=== PATIENT | female | born 1930 | race Caucasian/White ===

== ENCOUNTER → 2016-11-18 | Outpatient (CLI) | payer BC, OTHER ==
[~2016-11-18] MED LIST: ALPPOPS5 OP; AMOX500C3 PO; BIMA0.01 OPB; BRIN1SUS OPB; CHOL100010 PO; DILT120T3 PO; ENOX40IN SQ; HYDR-5688 PO; LEVO75TA36 PO; LSN/10125 PO; METO25TA3 PO; MULT-190 PO; MULTTAB58 PO; SIMV20TA2 PO; WARF5TAB90 PO
== END | disposition home or self-care (01) ==
LOC: C.RDSM 15:10
PROVIDERS: ATTEND Physical Medicine & Rehabilitation Sports Medicine
DX: Z96.652 Presence of left artificial knee joint (principal)

== ENCOUNTER → 2017-06-04 | Outpatient (CLI) | payer BC | END | disposition home or self-care (01) | LOC: C.RDSM 13:47 | PROVIDERS: ATTEND Physical Medicine & Rehabilitation Sports Medicine | DX: M25.551 Pain in right hip (principal) ==

== ENCOUNTER → 2017-08-01 | Outpatient (CLI) | payer BC ==
--- NOTE | 2017-08-01 13:37 | MAMMOGRAPHY REPORT ---
BILATERAL DIGITAL SCREENING MAMMOGRAM WITH CAD: 08/01/2017 CLINICAL HISTORY: Routine screening. Patient has no complaints. TECHNIQUE: Current study was also evaluated with a Computer Aided Detection (CAD) system. Bilateral CC and MLO views were obtained. COMPARISON: Comparison is made to exams dated: 07/31/2016 mammogram, 07/28/2015 mammogram, 07/27/2014 m ammogram, 07/26/2013 mammogram, 07/20/2012 mammogram, and 07/15/2011 mammogram - [facility]. BREAST COMPOSITION: The tissue of both breasts is heterogeneously dense, which may obscure small mas ses. FINDINGS: No suspicious masses, calcifications, or areas of architectural distortion are noted in ei ther breast. There has been no significant interval change compared to prior exams. IMPRESSION: ACR BI-RADS CATEGORY 1: NEGATIVE There is no mammographic evidence of malignancy. A 1 year screening mammogram is recommended. The pa tient will receive written notification of the results. Approximately 10% of breast cancers are not detected with mammography. A negative mammographic report should not delay biopsy if a clinically suggestive mass is present. Tisha Edouard M.D. /:08/01/2017 12:35:43 Senior [employer] Developer: Sheryl Lucas, M, [facility] letter sent: Normal 1/2 BI-RADS Code: ACR BI-RADS Category 1: Negative
== END | disposition home or self-care (01) ==
LOC: C.MAMM 10:18
PROVIDERS: ATTEND Family Medicine
DX: Z12.31 Encounter for screening mammogram for malignant neoplasm of breast (principal)

== ENCOUNTER → 2017-11-28 | Day surgery (SDC) | payer BC ==
[2017-11-13 10:54] VITALS: BMI 26.0
[~2017-11-28] VITALS: Ht 170.2 cm; Wt 76.8 kg
[~2017-11-28] MED LIST changes: +ACET-1256 PO; -ALPPOPS5 OP; +ALPPOPS5 OPB; +ATOR-54 PO; +BRIM0.2S OPB; +CAND16TA PO; -CHOL100010 PO; +CHOL200010 PO; -DILT120T3 PO; -ENOX40IN SQ; +ESMOLOL HCL 10 MG/ML 10 ML VIAL ONE; +FSMD/70 PO; -HYDR-5688 PO; -LEVO75TA36 PO; +LEVO75TA5 PO; +LIDOCAINE HCL 2% 2 ML VIAL (20MG/ML) ONE; -LSN/10125 PO; +METOPROLOL TARTRATE 1 MG/ML VIAL ONE; -MULT-190 PO; +MULTCAP36 PO; +PROPOFOL IV EMULSION 10 MG/ML 20 ML VIAL IV ONE; +PSYL48.59 PO; +RIVA1TAB4 PO; -SIMV20TA2 PO; +SODIUM CHLORIDE 0.9% 500ML 500 ML IV ONE; -WARF5TAB90 PO
[2017-11-28 12:42] VITALS: Ht 170.2 cm; Wt 76.8 kg
--- NOTE | 2017-11-28 13:20 | Endo History and Physical ---
History & Physical Date of Service: Nov 28, 2017. Chief Complaint: rectal bleeding Referring Physician: dr. reyes History of Present Illness rectal bleeding Past Medical History Arthritis, Asthma, Anxiety, Reflux, Thyroid Disease, Depression Past Surgical History Hx Cardiac Surgery: No Hx Internal Defibrillator: No Hx Pacemaker: No Hx Abdominal Surgery: Yes (FULL HYSTER) Hx of Implantable Prosthesis: No Hx Post-Op Nausea and Vomiting: No Hx Cancer Surgery: No Hx Thoracic Surgery: No Hx Orthopedic: Yes (LT/RT TKA) Hx Urinary Tract Surgery: Yes (BLADDER TACK) Family History None Social History Smoking Status: Former Smoker Hx Substance Use: No Hx Alcohol Use: No Allergies Coded Allergies: Oxycodone (Verified Adverse Reaction, Mild, AMNESIA, 11/13/17) Risedronate (Verified Adverse Reaction, Mild, N/V, 11/13/17) Alendronate (Verified Adverse Reaction, Unknown, N/V, 11/13/17) Ibandronic Acid (Verified Adverse Reaction, Unknown, leg pain;and diarrhea , 11/13/17) Methimazole (Verified Adverse Reaction, Unknown, N/V, 11/13/17) Current Medications Reported Home Medications Medications Dose Route/Sig Max Daily Dose Days Date Category Tylenol (Acetaminophen) 500 Mg Tab 1-2 Tabs PO Q6H PRN 11/13/17 Reported Fosamax+D 70MG/2800 Iu (Alendronate Sodium/Vitamin D3) 70 Mg Tab 1 Tablet PO WK 11/13/17 Reported Metamucil (Psyllium) 48.57 % Pow 1 Tsp PO BID 11/13/17 Reported Lipitor (Atorvastatin) 20 Mg Tab 20 Mg PO Q2D BEDTIME 11/13/17 Reported Xarelto (Rivaroxaban) 20 Mg Tab 20 Mg PO QPM 11/13/17 Reported Combigan (Brimonidine Tartrate-Timolol M) 1 Earlene Earlene 1 Drop OPB BID 11/13/17 Reported Preservision/Lutein (Multiple Vitamins W/ Minerals) 1 Cap Cap 1 Cap PO BID 11/13/17 Reported Vitamin D (Cholecalciferol) 2,000 Unit Cap 1 Cap PO QAM 11/13/17 Reported Atacand Hct 16MG/12.5MG (Candesartan Cilexetil-Hydrochl) 1 Tab Tab 1 Tab PO QAM 11/13/17 Reported Levothyroxine Sodium 75 Mcg Tab 1 Tab PO QAM 11/13/17 Reported Toprol-Xl (Metoprolol Succinate) 25 Mg Tabcr 2 Tabs PO HS 11/20/15 Reported Alphagan P (Brimonidine Tartrate) 75 Drops/5 Ml Soln 1 Drops OPB TID 11/20/15 Reported Amoxil (Amoxicillin) 500 Mg Cap 2,000 Mg PO UD PRN 06/09/14 Reported Azopt Oph (Brinzolamide) 1 % Izabella 1 Drop OPB TID 10/27/13 Reported Lumigan (Bimatoprost) 0.01 % Earlene 1 Drop OPB HS 10/27/13 Reported Multivitamin (Multiple Vitamin) 1 Tab Tab 1 Tab PO LUNCH 09/16/12 Reported Vital Signs Weight (Kilograms): 76.82 Height (Feet): 5 Height (Inches): 7 Date Time Temp Pulse Resp B/P (MAP) Pulse Ox O2 Delivery O2 Flow Rate FiO2 11/28/17 13:07 36.8 136 20 141/98 (112) 94 Room Air Physical Exam General Appearance: WD/WN, no apparent distress Respiratory/Chest: Auscultation: breath sounds normal Cardiovascular: Heart Auscultation: RRR Abdomen: Bowel Sounds: normal Inspection & Palpation: soft, non-distended, no tenderness, guarding & rebound Assessment and Plan colonoscopy with possible bx/polypectomy
--- NOTE | 2017-11-28 14:22 | GI REPORT ---
Procedure Date: 11/28/2017 1:37 PM Procedure: Colonoscopy Indications: Hematochezia Medicines: Propofol per Anesthesia Complications: No immediate complications. Estimated blood loss: Minimal. Estimated Blood Loss: Estimated blood loss was minimal. Procedure: Pre-Anesthesia Assessment: - Prior to the procedure, a History and Physical was performed, and patient medications and allergies were reviewed. The patient's tolerance of previous anesthesia was also reviewed. The risks and benefits of the procedure and the sedation options and risks were discussed with the patient. All questions were answered, and informed consent was obtained. Prior Anticoagulants: The patient has taken no previous anticoagulant or antiplatelet agents. ASA Grade Assessment: III - A patient with severe systemic disease. After reviewing the risks and benefits, the patient was deemed in satisfactory condition to undergo the procedure. After I obtained informed consent, the scope was passed under direct vision. Throughout the procedure, the patient's blood pressure, pulse, and oxygen saturations were monitored continuously. The scope was introduced through the anus and advanced to the terminal ileum, with identification of the appendiceal orifice and IC valve. The colonoscopy was performed without difficulty. The patient tolerated the procedure well. The quality of the bowel preparation was good. Findings: The perianal and digital rectal examinations were normal. Pertinent negatives include normal sphincter tone, no palpable rectal lesions and no anal lesion or abnormality was detected. A 3 mm polyp was found in the transverse colon. The polyp was sessile. The polyp was removed with a cold biopsy forceps. Resection and retrieval were complete. Estimated blood loss was minimal. Verification of patient identification for the specimen was done by the physician and medical records technician using the patient's name and medical record number. A few small-mouthed diverticula were found in the sigmoid colon. The exam was otherwise without abnormality. The terminal ileum appeared normal. Non-bleeding internal hemorrhoids were found during retroflexion. The hemorrhoids were moderate and medium-sized. Impression: - One 3 mm polyp in the transverse colon, removed with a cold biopsy forceps. Resected and retrieved. - Diverticulosis in the sigmoid colon. - The examination was otherwise normal. - The examined portion of the ileum was normal. - Non-bleeding internal hemorrhoids. Recommendation: - Discharge patient to home (ambulatory). - Resume regular diet. - Await pathology results. - Continue present medications. - Return to referring physician as previously scheduled. MD Dannie Wallace MD 11/28/2017 2:21:50 PM This report has been signed electronically. Note Initiated On: 11/28/2017 1:37 PM I attest to the content of the Intraoperative Record and orders documented therein, exceptions below
--- NOTE | 2017-11-28 14:25 | Discharge Instructions ---
Endoscopy Patient Instructions Date / Procedure(s) Performed Nov 28, 2017. Colonoscopy Allergy Information Coded Allergies: Oxycodone (Verified Adverse Reaction, Mild, AMNESIA, 11/13/17) Risedronate (Verified Adverse Reaction, Mild, N/V, 11/13/17) Alendronate (Verified Adverse Reaction, Unknown, N/V, 11/13/17) Ibandronic Acid (Verified Adverse Reaction, Unknown, leg pain;and diarrhea , 11/13/17) Methimazole (Verified Adverse Reaction, Unknown, N/V, 11/13/17) Discharge Date / Findings Nov 28, 2017. hemorrhoids polyp-removed with bx Medication Instructions Stopped Medication(s): xarelto Restart Stopped Medication(s): Reported Home Medications Medications Dose Route/Sig Max Daily Dose Days Date Category Tylenol (Acetaminophen) 500 Mg Tab 1-2 Tabs PO Q6H PRN 11/13/17 Reported Fosamax+D 70MG/2800 Iu (Alendronate Sodium/Vitamin D3) 70 Mg Tab 1 Tablet PO WK 11/13/17 Reported Metamucil (Psyllium) 48.57 % Pow 1 Tsp PO BID 11/13/17 Reported Lipitor (Atorvastatin) 20 Mg Tab 20 Mg PO Q2D BEDTIME 11/13/17 Reported Xarelto (Rivaroxaban) 20 Mg Tab 20 Mg PO QPM 11/13/17 Reported Combigan (Brimonidine Tartrate-Timolol M) 1 Earlene Earlene 1 Drop OPB BID 11/13/17 Reported Preservision/Lutein (Multiple Vitamins W/ Minerals) 1 Cap Cap 1 Cap PO BID 11/13/17 Reported Vitamin D (Cholecalciferol) 2,000 Unit Cap 1 Cap PO QAM 11/13/17 Reported Atacand Hct 16MG/12.5MG (Candesartan Cilexetil-Hydrochl) 1 Tab Tab 1 Tab PO QAM 11/13/17 Reported Levothyroxine Sodium 75 Mcg Tab 1 Tab PO QAM 11/13/17 Reported Toprol-Xl (Metoprolol Succinate) 25 Mg Tabcr 2 Tabs PO HS 11/20/15 Reported Alphagan P (Brimonidine Tartrate) 75 Drops/5 Ml Soln 1 Drops OPB TID 11/20/15 Reported Amoxil (Amoxicillin) 500 Mg Cap 2,000 Mg PO UD PRN 06/09/14 Reported Azopt Oph (Brinzolamide) 1 % Izabella 1 Drop OPB TID 10/27/13 Reported Lumigan (Bimatoprost) 0.01 % Earlene 1 Drop OPB HS 10/27/13 Reported Multivitamin (Multiple Vitamin) 1 Tab Tab 1 Tab PO LUNCH 09/16/12 Reported OK to resume Xeralto tomorrow evening ( Sat) Reported Home Medications Medications Dose Route/Sig Max Daily Dose Days Date Category Tylenol (Acetaminophen) 500 Mg Tab 1-2 Tabs PO Q6H PRN 11/13/17 Reported Fosamax+D 70MG/2800 Iu (Alendronate Sodium/Vitamin D3) 70 Mg Tab 1 Tablet PO WK 11/13/17 Reported Metamucil (Psyllium) 48.57 % Pow 1 Tsp PO BID 11/13/17 Reported Lipitor (Atorvastatin) 20 Mg Tab 20 Mg PO Q2D BEDTIME 11/13/17 Reported Xarelto (Rivaroxaban) 20 Mg Tab 20 Mg PO QPM 11/13/17 Reported Combigan (Brimonidine Tartrate-Timolol M) 1 Earlene Earlene 1 Drop OPB BID 11/13/17 Reported Preservision/Lutein (Multiple Vitamins W/ Minerals) 1 Cap Cap 1 Cap PO BID 11/13/17 Reported Vitamin D (Cholecalciferol) 2,000 Unit Cap 1 Cap PO QAM 11/13/17 Reported Atacand Hct 16MG/12.5MG (Candesartan Cilexetil-Hydrochl) 1 Tab Tab 1 Tab PO QAM 11/13/17 Reported Levothyroxine Sodium 75 Mcg Tab 1 Tab PO QAM 11/13/17 Reported Toprol-Xl (Metoprolol Succinate) 25 Mg Tabcr 2 Tabs PO HS 11/20/15 Reported Alphagan P (Brimonidine Tartrate) 75 Drops/5 Ml Soln 1 Drops OPB TID 11/20/15 Reported Amoxil (Amoxicillin) 500 Mg Cap 2,000 Mg PO UD PRN 06/09/14 Reported Azopt Oph (Brinzolamide) 1 % Izabella 1 Drop OPB TID 10/27/13 Reported Lumigan (Bimatoprost) 0.01 % Earlene 1 Drop OPB HS 10/27/13 Reported Multivitamin (Multiple Vitamin) 1 Tab Tab 1 Tab PO LUNCH 09/16/12 Reported OK to resume Xeralto tomorrow evening ( Sat) Provider Instructions Activity Restrictions - No exercising or heavy lifting for 24 hours. - Do not drink alcohol the day of the procedure. - Do not drive a car or operate machinery until the day after the procedure. - Do not make any important decisions or sign important papers in 24 hours after the procedure. Following Day: - Return to full activity which may include returning to work/school. Diet Start your diet with liquids and light foods (jello, soup, juice, toast). Then eat your usual diet if not nauseated. Treatment For Common After Affects For mild abdominal pain, bloating, or excessive gas: - Rest - Eat lightly - Lie on right side Follow-Up Information Follow-up with dr. reyes as scheduled Anesthesia Information What You Should Know You have had a procedure that required some medicine to reduce anxiety and discomfort. This treatment is called moderate sedation. After receiving the treatment, you may be sleepy, but you will be able to breathe on your own. The effects of the treatment may last for several hours. Follow these instructions along with Activity/Diet recommendations noted above: * Do NOT do anything where dizziness or clumsiness would be dangerous. * Rest quietly at home today, then you can be up and about tomorrow. * Have a responsible person stay with you the rest of today. * You may have had an I.V. today. If so, you may take the dressing off later today. Recommendations Call your doctor if: * Trouble breathing * Continuous vomiting for more than 24 hours * Temperature above 101 degrees * Severe abdominal pain or bloating * Pain not relieved by pain medicine ordered * There is increased drainage or redness from any incision * A large amount of rectal bleeding greater than 2-3 tablespoons. (If you had a polyp/s removed or have hemorrhoids, a small amount of blood - from the rectum is to be expected.) * You have any unanswered questions or concerns. IN THE EVENT OF A SERIOUS EMERGENCY, GO TO THE NEAREST EMERGENCY ROOM Your discharge instructions were prepared by provider Dannie Ocampo. Patient Instructions Signature Page Paulette Conner Patient (or Guardian) Signature/Date: I have read and understand the instructions given to me by my caregivers. Caregiver/RN/Doctor Signature/Date: The above-named patient and/or guardian has received patient instructions on this date. + Original Patient Signature Page (only) stays with chart. Please make copy for patient.
[2017-11-28 14:49] VITALS: BP 137/85; PULSE 101; O2SAT 97
--- NOTE | 2017-11-28 15:10 | Anesthesiology Progress Note ---
Anesthesia Post Op Note Date & Time Nov 28, 2017 at 15:10 Vital Signs Pain Intensity: 0 Vital Signs Past 12 Hours Date Time Temp Pulse Resp B/P (MAP) Pulse Ox O2 Delivery O2 Flow Rate FiO2 11/28/17 14:49 101 24 137/85 (102) 97 Room Air 11/28/17 14:34 107 24 109/78 (88) 96 Room Air 11/28/17 14:19 98 24 104/54 (71) 94 Room Air 11/28/17 13:07 36.8 136 20 141/98 (112) 94 Room Air Notes Mental Status: alert / awake / arousable, participated in evaluation Pt Amnestic to Procedure: Yes Nausea / Vomiting: adequately controlled Pain: adequately controlled Airway Patency, RR, SpO2: stable & adequate BP & HR: stable & adequate Hydration State: stable & adequate Anesthetic Complications: no major complications apparent
== END | disposition home or self-care (01) ==
LOC: C.GI 12:07
PROVIDERS: ATTEND Internal Medicine Gastroenterology
DX: K62.5 Hemorrhage of anus and rectum (principal); K57.30 Diverticulosis of large intestine without perforation or abscess without bleeding; K64.8 Other hemorrhoids; M19.90 Unspecified osteoarthritis, unspecified site; J45.909 Unspecified asthma, uncomplicated; K21.9 Gastro-esophageal reflux disease without esophagitis; F32.9 Major depressive disorder, single episode, unspecified; E07.9 Disorder of thyroid, unspecified; Z88.5 Allergy status to narcotic agent; Z90.710 Acquired absence of both cervix and uterus; Z96.653 Presence of artificial knee joint, bilateral; Z87.891 Personal history of nicotine dependence

== ENCOUNTER → 2017-12-22 | Outpatient (CLI) | payer BC ==
[~2017-12-22] MED LIST changes: -ESMOLOL HCL 10 MG/ML 10 ML VIAL ONE; -LIDOCAINE HCL 2% 2 ML VIAL (20MG/ML) ONE; -METOPROLOL TARTRATE 1 MG/ML VIAL ONE; -PROPOFOL IV EMULSION 10 MG/ML 20 ML VIAL IV ONE; -SODIUM CHLORIDE 0.9% 500ML 500 ML IV ONE
--- NOTE | 2017-12-22 10:44 | DIAGNOSTIC IMAGING REPORT ---
L HIP UNILATERAL 2 VIEWS CLINICAL HISTORY: Left hip pain. COMPARISON: Pelvis and left hip radiographs May 05, 2017. FINDINGS: Alignment of the left hip is anatomic. No fracture or suspicious lesion is present. Left hip joint space is preserved. There is mild osteophytosis. There may be chondrocalcinosis. There is no radiographic evidence for avascular necrosis. IMPRESSION: 1. No acute fracture. 2. Mild osteoarthritis of the left hip. Electronically signed by: Kole Casey M.D. 12/22/2017 10:42 AM Dictated Date/Time: 12/22/2017 10:41 AM
== END | disposition home or self-care (01) ==
LOC: C.RAD1850 10:30
PROVIDERS: ATTEND Family Medicine
DX: M25.552 Pain in left hip (principal); M16.12 Unilateral primary osteoarthritis, left hip

== ENCOUNTER → 2018-03-29 | Outpatient (CLI) | payer BC | END | disposition home or self-care (01) | LOC: C.LAB 08:14 | PROVIDERS: ATTEND Urology | DX: R31.0 Gross hematuria (principal) ==

== ENCOUNTER → 2018-04-06 | Outpatient (CLI) | payer BC | END | disposition home or self-care (01) | LOC: C.RDSM 15:15 | PROVIDERS: ATTEND Physical Medicine & Rehabilitation Sports Medicine | DX: M25.552 Pain in left hip (principal) ==

== ENCOUNTER 2019-05-17 12:38 | Inpatient (IN) ==
[2019-05-17] MEDS ORDERED: SODIUM CHLORIDE 0.9% 500 ML IV ONE (13:54)
[2019-05-17 14:09] LABS: Basophils # (auto) 0.02 K/uL (0-0.2); Basophils % (auto) 0.2 %; Eosinophils # (auto) 0.13 K/uL (0-0.5); Eosinophils % (auto) 1.6 %; Hematocrit (blood only) 45.5 % (37-47); Hemoglobin 14.5 g/dL (12.0-16.0); Immature Granulocytes # (auto) 0.02 K/uL (0.00-0.02); Immature Granulocytes % (auto) 0.2 %; Lymphocytes # (auto) 0.94 K/uL (1.2-3.4); Lymphocytes % (auto) 11.4 %; Mean Corpuscular Hemoglobin 29.8 pg (25-34); Mean Corpuscular Hgb Conc 31.9 g/dL (32-36); Mean Corpuscular Volume 93.4 fL (80-100); Mean Platelet Volume 11.6 fL (7.4-10.4); Monocytes % (auto) 10.9 %; Neutrophils # (auto) 6.27 K/uL (1.4-6.5); Neutrophils % (auto) 75.7 %; Platelet Count 188 K/uL (130-400); RDW Coefficient of Variation 16.7 % (11.5-14.5); RDW Standard Deviation 56.8 fL (36.4-46.3); Red Blood Count 4.87 M/uL (4.2-5.4); White Blood Count 8.28 K/uL (4.8-10.8)
[2019-05-17 14:11] LABS: Alanine Aminotransferase 46 U/L (12-78); Albumin Level 3.4 gm/dl (3.4-5.0); Aspartate Aminotransferase 37 U/L (15-37); BUN Creatinine Ratio 17.3 (10-20); Blood Urea Nitrogen 16 mg/dl (7-18); Calcium 9.5 mg/dl (8.5-10.1); Carbon Dioxide 26 mmol/L (21-32); Chloride 106 mmol/L (98-107); Est GFR (African American) 65.3; Est GFR (Non-African American) 56.4; Glucose 133 mg/dl (70-99); Lipase 226 U/L (73-393); Magnesium 1.9 mg/dl (1.8-2.4); Potassium 4.2 mmol/L (3.5-5.1); Sodium 140 mmol/L (136-145)
--- NOTE | 2019-05-17 14:14 | XRay Report ---
SINGLE VIEW CHEST CLINICAL HISTORY: Atypical chest pain. FINDINGS: An AP, portable, upright chest radiograph is compared to study dated 08/31/2018 and correlate d with chest CT dated 06/28/2018. The examination is degraded by portable technique and patient rotati on. The heart is enlarged and there is atherosclerotic calcification of the thoracic aorta. There is pulmonary vascular congestion. There are small pleural effusions with bibasilar consolidation. No pn eumothorax is seen. The skeletal structures are osteopenic. The bony thorax is grossly intact. IMPRESSION: 1. Cardiomegaly with evidence of congestive failure. 2. Small pleural effusions with bibasilar consolidation. This likely represents atelectasis and clini shaista correlation will be required. Electronically signed by: Ramiro Doss M.D. 05/17/2019 2:12 PM
[2019-05-17 14:22] LABS: Albumin Globulin Ratio 0.9 (0.9-2); Alkaline Phosphatase 111 U/L (45-117); Bilirubin,Total 1.5 mg/dl (0.2-1); Globulin 3.7 gm/dl (2.5-4.0); Phosphorus 3.2 mg/dl (2.5-4.9); Total Protein 7.1 gm/dl (6.4-8.2); Troponin I < 0.015 ng/ml (0-0.045)
[2019-05-17] MEDS ORDERED: DiphenhydrAMINE HCL 50 MG/ML VIAL IV STA (14:56)
--- NOTE | 2019-05-17 15:04 | Emergency Department Note ---
ED Visit Note This patient was seen in concert with Dr. Parra and we discussed and agreed upon the history, physical, assessment and plan. See attending's note for details. . Resident Activity Tracking Resident Involvement: Resident Care Provided Care Provided: Adult ED
[2019-05-17] MEDS ORDERED: OPTIRAY 320 125ml IV PRN (15:56)
--- NOTE | 2019-05-17 16:17 | CT Scan Report ---
CT angio head w con CLINICAL HISTORY: 88 years-old Female presenting with vertigo. TECHNIQUE: Multidetector CT angiography of the head was performed after the administration of intrave nous contrast. 3-D volumetric and/or maximum intensity projection (MIP) images were subsequently deb nstructed for review. IV contrast: None. One or more dose lowering techniques were used consistent wi th the principles of ALARA (as low as reasonably achievable), including automatic exposure control, m A or kV adjustment to individual patient size, and/or use of iterative reconstruction. COMPARISON: Noncontrast CT head from today and 06/24/2018. CT DOSE (mGy.cm): The estimated cumulative dose is 1563.60. FINDINGS: Outside Cutter topogram: The patient is edentulous. Anterior circulation: Atherosclerosis of the cavernous segments of the internal carotid arteries. Int racranial portions of the internal carotid arteries patent to the level of the termini. Anterior cere bral arteries patent. Middle cerebral arteries patent. Anterior communicating artery patent. Posterior circulation: Codominant vertebral arteries. Intradural portions of the vertebral arteries p atent. Posterior inferior cerebellar arteries patent. Basilar artery patent. Fenestration of the basi lar artery noted. Anterior inferior cerebellar arteries poorly visualized. Superior cerebellar arteri es patent. Posterior cerebral arteries patent. Posterior communicating arteries patent. Dural venous sinuses: Patent. Other: Allowing for the phase of contrast, brain parenchyma within normal limits. Calvarium intact. IMPRESSION: 1. No evidence of aneurysm, focal vessel occlusion, or significant stenosis of the intracranial immanuel sara. Electronically signed by: Artem Barclay M.D. 05/17/2019 4:16 PM
--- NOTE | 2019-05-17 16:17 | CT Scan Report ---
CT head/brain wo con CLINICAL HISTORY: 88 years-old Female with Vertigo. Acute vertigo with dizziness TECHNIQUE: Multiple axial CT images of the head were obtained without contrast. A dose lowering tech nique was utilized adhering to the principles of ALARA. CT DOSE: 1563.60 mGy.cm COMPARISON: CTA of the head of same day, CT head 06/24/2018 FINDINGS: Motion degraded exam. No acute intracranial hemorrhage, midline shift, intracranial mass, hydrocephal us, territorial ischemia or abnormal extra-axial collection. Age-related involutional changes. Patchy white matter hypodensities suggest chronic microvascular ischemic disease. Cerebral vascular calcifi cations are noted. Senescent calcifications of the left lentiform nucleus. Encephalomalacia of the in ferior left cerebellar hemisphere suggestive of remote infarction, new from comparison study. The calvarium is intact. Prior bilateral cataract repair. The paranasal sinuses, mastoid air cells, a nd middle ear cavities are clear. IMPRESSION: 1. No acute intracranial hemorrhage or midline shift. 2. 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 It may contain grammatical, syntax o r spelling errors. Electronically signed by: Radu Turpin M.D. 05/17/2019 4:16 PM
--- NOTE | 2019-05-17 16:27 | CT Scan Report ---
CT angio neck with con CLINICAL HISTORY: 88 years-old Female with vertigo. Acute vertigo with dizziness COMPARISON STUDY: CTA of the head of same day TECHNIQUE: Following the IV administration of 119 mL of Optiray 320, CT angiogram of the neck was per formed from the aortic arch to the skull base. Images are reviewed in the axial, sagittal, and winkler l planes. 3-D MIPS images are created and assessed. IV contrast was administered without complication . All measurements were calculated based on NASCET criteria. A dose lowering technique was utilized adhering to the principles of ALARA. FINDINGS: The imaged opacified pulmonary arterial tree appears unremarkable. Three-vessel morphology of aortic arch which demonstrates moderate calcified plaque image bilateral subclavian arteries appear patent. Tortuous and patent bilateral common carotid arteries. Moderate calcified plaque of the right carotid bulb results in less than 50% luminal narrowing. Moderate to severe mixed plaque of the left carotid bulb and proximal left ICA results in less than 50% luminal narrowing. Calcified plaque about the ca vernous and supraclinoid segments bilaterally without high-grade stenosis. Codominant vertebral arteries. Calcified plaque at the origin of the right vertebral artery without h igh-grade stenosis. There is a long segment area of less than 50% luminal narrowing about the V4 segm ent left vertebral artery. Flow is seen within the proximal portions of the bilateral posterior infer ior cerebellar arteries. Bilateral pleural effusions. Bilateral bronchial wall thickening. Intralobular septal thickening is a lso noted. Patchy groundglass opacities of the right lung apex. Multinodular goiter with large enhanc ing nodules about the posterior right thyroid lobe. Decreased attenuation of the inferior left cerebe llar hemisphere. Degenerative changes of the spine. Probable bone island at T1. IMPRESSION: 1. 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 Correlate with clinic al history. 2. No aneurysm, dissection, high-grade stenosis or proximal branch occlusion identified. 3. Bilateral pleural effusions with suggestion of pulmonary edema. Patchy groundglass opacities of th e right lung apex may reflect alveolar pulmonary edema versus superimposed pneumonitis. The above report was generated using voice recognition software. It may contain grammatical, syntax o r spelling errors. Electronically signed by: Radu Turpin M.D. 05/17/2019 4:25 PM
--- NOTE | 2019-05-17 17:33 | History & Physical Report ---
Date of Service May 17, 2019 Assessment & Plan (1) Stroke-like symptoms: CVA vs TIA vs BPPV CT head, CTA head/neck noted for possible older events MRI pending CBC, PRP WNL Trop neg TSH WNL Lyme pending Neuro c/s pending given findings on imaging Of note, pt had similar sx in September that resolved with tx of PNA. May consider further chest imaging if ongoing sx, but will hold with abx tx (2) Pleural effusion: Noted on CXR Mild SOB Will hold on lasix given time of night, but will dose in AM and monitor ECHO 09/2018 with EF 50-55% and mod/severe MR with severely dilated LA and moderately dilated RA--will not repeat (3) Dyslipidemia: continue home meds (4) Permanent atrial fibrillation: continue home meds, eliquis (5) Urinary retention: No current issues Occurred during recent admission and was thought to be stress induced Monitor (6) Chest tightness: Not a new issue, monitor on tele Possibly related to small pleural effusions (7) Hypothyroidism: continue home meds (8) Depression: continue home meds (9) Anxiety: continue home meds (10) Hypertension: continue home meds (11) DVT prophylaxis: Eliquis History of Present Illness Primary Care Provider: Mustapha Abel MD 88 y/o F c/o dizziness. Pt states she had two episodes of room spinning dizziness this AM. The first was after she was turning over in bed and the second was while she was just lying. Last episode was around 9a. She states she was nauseated with this, but no emesis. She states it resolved and she was up doing things around her home after that. She did have some mild SOB and chest heaviness with this activity, but she was able to complete her activities. This has been happening intermittently for over a month. She states that yesterday was a normal day for her. She has been fatigued and feels weak since her admission in September, but nothing new. Pt denies issues with inability to use UE/LE recently, no facial droop or confusion. She states she has baseline marianna nce issues related to her knees, but no other balance problems recently. At present, pt feels fatigued, but no further episodes of room spinning. Pt denies fever, abd pain, c/d, LE pain. She does get LE swelling at times and is currently at her baseline for this. Pt was admitted 09/2018 with dizziness. She was found to have a PNA and UTI and tx. She was d/c'd to [facility] for rehab at that time. Allergies Allergy/AdvReac Type Severity Reaction Status Date / Time oxycodone AdvReac Mild AMNESIA Verified 05/17/19 14:03 risedronate sodium AdvReac Mild N/V Verified 05/17/19 14:03 alendronate sodium AdvReac Unknown N/V Verified 05/17/19 14:03 methimazole AdvReac Unknown N/V Verified 05/17/19 14:03 Ibandronic Acid AdvReac Unknown leg Uncoded 05/17/19 14:03 pain;and diarrhea Home Medications Home Medications Medication Instructions Recorded Confirmed Type Azopt 1 drp OPR TID 06/11/18 05/17/19 History Combigan 1 drp OPB BID 06/11/18 05/17/19 History Lumigan 1 drp OPR HS 06/11/18 05/17/19 History PreserVision Lutein 1 cap PO BIDM 06/11/18 05/17/19 History atorvastatin [Lipitor] 20 mg PO Q2D 06/11/18 05/17/19 History cholecalciferol (vitamin D3) 2,000 unit PO QAM 06/11/18 05/17/19 History [Vitamin D3] levothyroxine 75 mcg PO QAM 06/11/18 05/17/19 History multivitamin 1 tab PO DAILY@1100 06/11/18 05/17/19 History acetaminophen [Tylenol Extra 500 - 1,000 mg PO UD PRN 06/24/18 05/17/19 History Strength] triamterene 37.5 1 tab PO DAILY PRN #30 tab 03/10/19 05/17/19 History mg-hydrochlorothiazide 25 mg tablet apixaban 5 mg PO BIDM 05/17/19 05/17/19 History metoprolol succinate 50 mg PO HS 05/17/19 05/17/19 History metoprolol succinate 100 mg PO QAM 05/17/19 05/17/19 History Past Med/Surg History Medical History Urinary retention Ambulatory dysfunction Transaminitis Exertional dyspnea Chest tightness Atrial fibrillation with RVR (Acute) UTI (urinary tract infection) (Acute) Hyperlipidemia Hypertension Atrial fibrillation dx 8 years ago, on oral medications. follows w/ dr. 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 Hypothyroidism Osteoarthritis Osteoporosis Heart murmur MR and Arthritis of knee, left (Acute 11/16/13) Right knee DJD Surgical History Hx of cataract surgery History of total knee replacement bl History of thyroidectomy History of prolapse of bladder surgically repaired History of total abdominal hysterectomy and bilateral salpingo-oophorectomy History of colonoscopy w/ polypectomy History of hand surgery Family History Other No significant family history Social History Preferred Language: Iranian Communication Ability: Effective Director Of Pharmacy Required: No Beliefs That Will Affect Care: None Current Living Situation: Alone Feels Safe at Home: Yes Safety Concerns: Feels Safe At This Time Smoking Status: Former smoker Do You Dip or Chew Tobacco: No ; Number of Years Since Quit: 50 ; Second Hand Exposure: No ; Hx Alcohol Use: No Hx Substance Use: No Review of Systems Review of Systems: Pertinent positives and negatives reviewed in HPI--all others negative Physical Exam Constitutional: WD/WN, vitals as above Eyes: normal visual iqbal by confrontation and + anicteric sclerae Neck: normal visual inspection and trachea midline Respiratory: normal respiratory effort, lungs clear to auscultation Cardiovascular: Rate/Rhythm: regular rate and regular rhythm Gastrointestinal (Abdomen): Inspection/Auscultation: abdomen not distended Percussion/Palpation: abdomen soft; abdomen nontender Musculoskeletal: Head/Neck/Chest: normocephalic and head atraumatic Trace nonpitting b/l LE edema, peripheral pulses intact Skin: no rashes, warm and dry Neurologic: CN's II-XI intact bilaterally and awake; not confused Speech / Cognition: normal speech chronometer adjuster strength 5/5 b/l LE strength against resistance 5/5 in all planes Psychiatric: A+Ox3, euthymic affect Results & Data Vital Signs (Past 12 Hours) Vital Signs Temp Pulse Pulse Resp BP BP Pulse Ox 05/17/19 17:26 110 H 17 158/103 H 95 05/17/19 14:19 97 05/17/19 12:43 36.8 C 110 H 20 152/88 H 94 Diagnostic Findings CXR: CHF, small pleural effusion, bibasilar consolidation-likely atelectesis CT head: 1. No acute intracranial hemorrhage or midline shift. 2. 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 Correlate with clinical history. 2. No aneurysm, dissection, high-grade stenosis or proximal branch occlusion identified. 3. Bilateral pleural effusions with suggestion of pulmonary edema. Patchy groundglass opacities of the right lung apex may reflect alveolar pulmonary edema versus superimposed pneumonitis. Code Status & VTE Plan Code Status Full code although pt is not quite certain about intubation. She was advised that she will be made a full code for now, but that if she changes her mind about this she should alert nursing or physician VTE Prophylaxis Plan VTE Prophylaxis will be ordered: Yes PG Care Time/CCT Total # of Minutes Spent Total Time Spent with Patient: Total time spent is greater than 50% in coordination of care (as documented) at patient's floor/unit and/or counseling patient:
[2019-05-17] MEDS ORDERED: TRIAMTERENE/HCTZ 37.5/25MG TAB PO PRN (18:36)
[2019-05-17] MEDS ORDERED: ONDANSETRON INJ 2 MG/ML 2 ML VIAL IV PRN (18:36)
[2019-05-17] MEDS ORDERED: PHARMACIST DISCHARGE MED REC CONSULT PRN (18:36)
[2019-05-17] MEDS ORDERED: ACETAMINOPHEN 500 MG TAB PO PRN (18:36)
[2019-05-17] MEDS ORDERED: ACETAMINOPHEN 325 MG TAB PO PRN (18:36)
[2019-05-17] MEDS ORDERED: MAGNESIUM HYDROXIDE SUSP 30 ML UDC PO PRN (18:36)
--- NOTE | 2019-05-17 19:39 | Emergency Department Note ---
Entered by Ruchi Flores acting as a scribe for Enrrique Parra MD History of Present Illness General Chief complaint: Vertigo Stated complaint: dizzy Time Seen by Provider: 05/17/19 13:18 Source: patient History of Present Illness Onset (ago): hour(s) (this morning ) Location: head Severity: similar to prior episodes Pain Consistency: + intermittent and + other (episodes) Maximum Pain Intensity: 0 Quality: + other (room-spinning dizziness) Exacerbated By: + movement Associated symptoms: + nausea/vomiting (positive nausea; negative vomiting) and + other (negative feeling off balance; negative lightheadedness); no headaches The patient is a 88 year old female who presents to the Emergency Room with complaints of intermittent episodes of dizziness that began this morning. The patient states that her symptoms are exacerbated with movement and each episode lasts for several minutes. She describes her dizziness as room-spinning. The patient reports nausea during these episodes, but denies vomiting. She denies feeling off balance, lightheadedness, and headache. The patient states that these episodes are similar to prior episodes that she has had over the past year. She states that her Metoprolol dosage was recently increased one month ago. The patient states that she has a history of AFib and is on Eliquis. Home Medications Home Medications Medication Instructions Recorded Confirmed Type Azopt 1 drp OPR TID 06/11/18 05/17/19 History Combigan 1 drp OPB BID 06/11/18 05/17/19 History Lumigan 1 drp OPR HS 06/11/18 05/17/19 History PreserVision Lutein 1 cap PO BIDM 06/11/18 05/17/19 History atorvastatin [Lipitor] 20 mg PO Q2D 06/11/18 05/17/19 History cholecalciferol (vitamin D3) 2,000 unit PO QAM 06/11/18 05/17/19 History [Vitamin D3] levothyroxine 75 mcg PO QAM 06/11/18 05/17/19 History multivitamin 1 tab PO DAILY@1100 06/11/18 05/17/19 History acetaminophen [Tylenol Extra 500 - 1,000 mg PO UD PRN 06/24/18 05/17/19 History Strength] triamterene 37.5 1 tab PO DAILY PRN #30 tab 03/10/19 05/17/19 History mg-hydrochlorothiazide 25 mg tablet apixaban 5 mg PO BIDM 05/17/19 05/17/19 History metoprolol succinate 50 mg PO HS 05/17/19 05/17/19 History metoprolol succinate 100 mg PO QAM 05/17/19 05/17/19 History Allergies Allergy/AdvReac Type Severity Reaction Status Date / Time oxycodone AdvReac Mild AMNESIA Verified 05/17/19 14:03 risedronate sodium AdvReac Mild N/V Verified 05/17/19 14:03 alendronate sodium AdvReac Unknown N/V Verified 05/17/19 14:03 methimazole AdvReac Unknown N/V Verified 05/17/19 14:03 Ibandronic Acid AdvReac Unknown leg Uncoded 05/17/19 14:03 pain;and diarrhea Past Med/Surg History Medical History Urinary retention Ambulatory dysfunction Transaminitis Exertional dyspnea Chest tightness Atrial fibrillation with RVR (Acute) UTI (urinary tract infection) (Acute) Hyperlipidemia Hypertension Atrial fibrillation dx 8 years ago, on oral medications. follows w/ dr. 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 Hypothyroidism Osteoarthritis Osteoporosis Heart murmur MR and Arthritis of knee, left (Acute 11/16/13) Right knee DJD Surgical History Hx of cataract surgery History of total knee replacement bl History of thyroidectomy History of prolapse of bladder surgically repaired History of total abdominal hysterectomy and bilateral salpingo-oophorectomy History of colonoscopy w/ polypectomy History of hand surgery Family History Other No significant family history Social History Preferred Language: Irish Communication Ability: Effective Wheel Cutter Required: No Beliefs That Will Affect Care: None Current Living Situation: Alone Feels Safe at Home: Yes Safety Concerns: Feels Safe At This Time Smoking Status: Former smoker Do You Dip or Chew Tobacco: No ; Number of Years Since Quit: 50 ; Second Hand Exposure: No ; Hx Alcohol Use: No Hx Substance Use: No Review of Systems See HPI for pertinent positives & negatives. and A total of 10 systems reviewed and were otherwise negative Physical Exam Vital Signs Vital Signs - 24 hr 05/17/19 12:43 05/17/19 14:19 Temperature 36.8 C Temperature Source Oral Sepsis Recent Fever Within 48 Hours No Sepsis Action Taken by Nursing No Action Required Pulse Rate 110 H Respiratory Rate 20 Respiratory Effort / Characteristics Non-Labored Respiratory Depth Normal Blood Pressure 152/88 H Blood Pressure Mean 109 Pulse Oximetry 94 97 Oxygen Delivery Method Room Air Room Air GENERAL: Awake, alert, fatigued-appearing, in no distress HENT: Normocephalic, atraumatic. Oropharynx with dry mucous membranes and otherwise unremarkable. EYES: Mild bilateral, bidirectional horizontal nystagmus that extinguished after 1 beat. Normal conjunctiva. Sclera non-icteric. EOMI. PEARRL NECK: Supple. No nuchal rigidity. FROM. No JVD. RESPIRATORY: CTAB. CARDIAC: Tachycardic rate, irregular rhythm. Extremities warm and well perfused. Pulses equal. ABDOMEN: Soft, non-distended. No tenderness to palpation. No rebound or guarding. No masses. RECTAL: Deferred. MUSCULOSKELETAL: Chest examination reveals no tenderness. The back is symmetrical on inspection without obvious abnormality. There is no CVA tenderness to palpation. No joint edema. LOWER EXTREMITIES: Calves are equal size bilaterally and non-tender. No edema. No discoloration. NEURO: Intact finger to nose and alternating palms. Normal sensorium. No sensory or motor deficits noted. 5/5 strength and SILT x 4 extremities. SKIN: No rash or jaundice noted. Course 1321: The patient was seen and evaluated by the resident Cheri Pelayo. 1439: Past medical records reviewed. The patient was evaluated in room C4. A complete history and physical exam was performed. 1715: I discussed the patient's case with Dr. Galvez- [facility] Hospitalist, she will accept the patient for further evaluation. Administered Medications Apixaban (Eliquis) 5 mg PO BIDM [facility] Stop: 06/16/19 18:59 Last Admin: 05/17/19 20:47 Dose: 5 mg Documented by: [id number] Brinzolamide (Azopt) 1 drops OPR TID QUINCY Stop: 06/16/19 20:59 Last Admin: 05/17/19 20:49 Dose: Not Given Documented by: [id number] Ioversol (Optiray 320 125ml) 119 ml IV ONCE PRN PRN Reason: Interaction Checking Stop: 05/21/19 15:55 Last Admin: 05/17/19 15:57 Dose: 1 ml Documented by: [id number] Metoprolol Succinate (Toprol Xl) 50 mg PO HS QUINCY Stop: 06/16/19 20:59 Last Admin: 05/17/19 20:47 Dose: 50 mg Documented by: [id number] Discontinued Medications Diphenhydramine HCl (Benadryl) 12.5 mg IV NOW STA Stop: 05/17/19 14:57 Last Admin: 05/17/19 15:28 Dose: 12.5 mg Documented by: [id number] Sodium Chloride (Nss) 500 mls @ 999 mls/hr IV .Q31M ONE Stop: 05/17/19 14:24 Last Infusion: 05/17/19 14:32 Dose: 0 mls/hr Documented by: [id number] Admin: 05/17/19 13:57 Dose: 999 mls/hr Documented by: [id number] Medical Decision Making Differential Diagnosis Differential diagnosis: Etiologies such as metabolic, infection, hypo/hyperglycemia, electrolyte abnormalities, cardiac sources, intracerebral event, stroke, toxicologic, neurologic, as well as others were entertained. Medical Records Attestation: I reviewed the patient's medical records. Home Medications Current Medication List: was personally reviewed by me Laboratory Data Attestation: I reviewed the patient's lab results. Result diagrams: 05/17/19 13:00 05/17/19 13:00 Lab Results 05/17/19 05/17/19 05/17/19 Range/Units 13:00 13:00 13:20 WBC 8.28 (4.8-10.8) K/uL RBC 4.87 (4.2-5.4) M/uL Hgb 14.5 (12.0-16.0) g/dL Hct 45.5 (37-47) % MCV 93.4 (80-100) fL MCH 29.8 (25-34) pg MCHC 31.9 L (32-36) g/dL RDW Std Deviation 56.8 H (36.4-46.3) fL RDW Coeff of Piotr 16.7 H (11.5-14.5) % Plt Count 188 (130-400) K/uL MPV 11.6 H (7.4-10.4) fL Immature Gran % (Auto) 0.2 % Neut % (Auto) 75.7 % Lymph % (Auto) 11.4 % Harlan % (Auto) 10.9 % Eos % (Auto) 1.6 % Baso % (Auto) 0.2 % Immature Gran # (Auto) 0.02 (0.00-0.02) K/uL Neut # (Auto) 6.27 (1.4-6.5) K/uL Lymph # (Auto) 0.94 L (1.2-3.4) K/uL Harlan # (Auto) 0.90 H (0.11-0.59) K/uL Eos # (Auto) 0.13 (0-0.5) K/uL Baso # (Auto) 0.02 (0-0.2) K/uL Sodium 140 (136-145) mmol/L Potassium 4.2 (3.5-5.1) mmol/L Chloride 106 (98-107) mmol/L Carbon Dioxide 26 (21-32) mmol/L Anion Gap 8.0 (3-11) BUN 16 (7-18) mg/dl Creatinine 0.92 (0.6-1.2) mg/dl Est Cr Clr Drug Dosing Not Reportable Est GFR ( Amer) 65.3 Est GFR (Non-Af Amer) 56.4 BUN/Creatinine Ratio 17.3 (10-20) Glucose 133 H (70-99) mg/dl Calcium 9.5 (8.5-10.1) mg/dl Phosphorus 3.2 (2.5-4.9) mg/dl Magnesium 1.9 (1.8-2.4) mg/dl Total Bilirubin 1.5 H (0.2-1) mg/dl AST 37 (15-37) U/L ALT 46 (12-78) U/L Alkaline Phosphatase 111 (45-117) U/L Troponin I < 0.015 (0-0.045) ng/ml Total Protein 7.1 (6.4-8.2) gm/dl Albumin 3.4 (3.4-5.0) gm/dl Globulin 3.7 (2.5-4.0) gm/dl Albumin/Globulin Ratio 0.9 (0.9-2) Lipase 226 (73-393) U/L TSH 1.020 (0.300-4.500) uIu/ml Lyme Disease IgG Ab Negative (Negative) Lyme Disease IgM Ab Negative (Negative) Imaging Data Radiologist's Impression: Radiology results as stated below per my review and the radiologist's interpretation: CT head/brain wo con CLINICAL HISTORY: 88 years-old Female with Vertigo. Acute vertigo with dizziness TECHNIQUE: Multiple axial CT images of the head were obtained without contrast. A dose lowering technique was utilized adhering to the principles of ALARA. CT DOSE: 1563.60 mGy.cm COMPARISON: CTA of the head of same day, CT head 06/24/2018 FINDINGS: Motion degraded exam. No acute intracranial hemorrhage, midline shift, intracranial mass, hydrocephalus, territorial ischemia or abnormal extra-axial collection. Age-related involutional changes. Patchy white matter hypodensities suggest chronic microvascular ischemic disease. Cerebral vascular calcifications are noted. Senescent calcifications of the left lentiform nucleus. Encephalomalacia of the inferior left cerebellar hemisphere suggestive of remote infarction, new from comparison study. The calvarium is intact. Prior bilateral cataract repair. The paranasal sinuses, mastoid air cells, and middle ear cavities are clear. IMPRESSION: 1. No acute intracranial hemorrhage or midline shift. 2. 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 It may contain grammatical, syntax or spelling errors. Electronically signed by: Radu Turpin M.D. 05/17/2019 4:[address] angio head w con CLINICAL HISTORY: 88 years-old Female presenting with vertigo. TECHNIQUE: Multidetector CT angiography of the head was performed after the administration of intravenous contrast. 3-D volumetric and/or maximum intensity projection (MIP) images were subsequently reconstructed for review. IV contrast: None. One or more dose lowering techniques were used consistent with the principles of ALARA (as low as reasonably achievable), including automatic exposure control, mA or kV adjustment to individual patient size, and/or use of iterative reconstruction. COMPARISON: Noncontrast CT head from today and 06/24/2018. CT DOSE (mGy.cm): The estimated cumulative dose is 1563.60. FINDINGS: Junior Architect topogram: The patient is edentulous. Anterior circulation: Atherosclerosis of the cavernous segments of the internal carotid arteries. Intracranial portions of the internal carotid arteries patent to the level of the termini. Anterior cerebral arteries patent. Middle cerebral arteries patent. Anterior communicating artery patent. Posterior circulation: Codominant vertebral arteries. Intradural portions of the vertebral arteries patent. Posterior inferior cerebellar arteries patent. Basilar artery patent. Fenestration of the basilar artery noted. Anterior inferior cerebellar arteries poorly visualized. Superior cerebellar arteries patent. Posterior cerebral arteries patent. Posterior communicating arteries patent. Dural venous sinuses: Patent. Other: Allowing for the phase of contrast, brain parenchyma within normal li mits. Calvarium intact. IMPRESSION: 1. No evidence of aneurysm, focal vessel occlusion, or significant stenosis of the intracranial arteries. Electronically signed by: Artem Barclay M.D. 05/17/2019 4:[address] angio neck with con CLINICAL HISTORY: 88 years-old Female with vertigo. Acute vertigo with dizziness COMPARISON STUDY: CTA of the head of same day TECHNIQUE: Following the IV administration of 119 mL of Optiray 320, CT angiogram of the neck was performed from the aortic arch to the skull base. Images are reviewed in the axial, sagittal, and coronal planes. 3-D MIPS images are created and assessed. IV contrast was administered without complication. All measurements were calculated based on NASCET criteria. A dose lowering technique was utilized adhering to the principles of ALARA. FINDINGS: The imaged opacified pulmonary arterial tree appears unremarkable. Three-vessel morphology of aortic arch which demonstrates moderate calcified plaque image bilateral subclavian arteries appear patent. Tortuous and patent bilateral commo n carotid arteries. Moderate calcified plaque of the right carotid bulb results in less than 50% luminal narrowing. Moderate to severe mixed plaque of the left carotid bulb and proximal left ICA results in less than 50% luminal narrowing. Calcified plaque about the cavernous and supraclinoid segments bilaterally without high-grade stenosis. Codominant vertebral arteries. Calcified plaque at the origin of the right vertebral artery without high-grade stenosis. There is a long segment area of less than 50% luminal narrowing about the V4 segment left vertebral artery. Flow is seen within the proximal portions of the bilateral posterior inferior cerebellar arteries. Bilateral pleural effusions. Bilateral bronchial wall thickening. Intralobular septal thickening is also noted. Patchy groundglass opacities of the right lung apex. Multinodular goiter with large enhancing nodules about the posterior right thyroid lobe. Decreased attenuation of the inferior left cerebellar hemisphere. Degenerative changes of the spine. Probable bone island at T1. IMPRESSION: 1. 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 Correlate with clinical history. 2. No aneurysm, dissection, high-grade stenosis or proximal branch occlusion identified. 3. Bilateral pleural effusions with suggestion of pulmonary edema. Patchy groundglass opacities of the right lung apex may reflect alveolar pulmonary edema versus superimposed pneumonitis. The above report was generated using voice recognition software. It may contain grammatical, syntax or spelling errors. Electronically signed by: Radu Turpin M.D. 05/17/2019 4:25 PM SINGLE VIEW CHEST CLINICAL HISTORY: Atypical chest pain. FINDINGS: An AP, portable, upright chest radiograph is compared to study dated 08/31/2018 and correlated with chest CT dated 06/28/2018. The examination is degraded by portable technique and patient rotation. The heart is enlarged and there is atherosclerotic calcification of the thoracic aorta. There is pulmonary vascular congestion. There are small pleural effusions with bibasilar consolidation. No pneumothorax is seen. The skeletal structures are osteopenic. The bony thorax is grossly intact. IMPRESSION: 1. Cardiomegaly with evidence of congestive failure. 2. Small pleural effusions with bibasilar consolidation. This likely represents atelectasis and clinical correlation will be required. Electronically signed by: Ramiro Doss M.D. 05/17/2019 2:12 PM ECG Data Attestation: I personally reviewed and interpreted this ECG as follows: Indication: weakness Rate (beats per minute): 102 Rhythm: atrial fibrillation (with RVR) Findings: + other (normal axis); no acute ischemic change Comparison ECG Date: from (06/30/18) Change: no significant change Blood Pressure Blood Pressure Findings: Elevated blood pressure Blood Pressure Disposition: further management by hospitalist MAYRA Romero The patient is a pleasant 88-year-old woman with a past medical history of A. fib on Eliquis, hypertension, hyperlipidemia, mitral regurgitation who presents emergency department with episode of intermittent dizziness/vertigo that began when she woke up this morning per hpi. On arrival the patient is no acute distress, afebrile stable vital signs. On exam the patient appears clinically dry. The patient has mild bilateral, bidirectional horizontal nystagmus that extinguishes after 1 beat. She has intact finger-nose and alternating palms. She has no focal neuro deficits. Speech is fluent. EKG demonstrates A. fib without overt acute ischemia. Chest x-ray negative for acute process. WBC, H/H and platelets within normal limits. Chemistry without acidosis. Troponin n egative. Electrolytes and LFTs unremarkable. The patient was feeling improved after IV fluid hydration and Benadryl. Given the patient has not previously been evaluated for the symptoms of vertigo which she reports of been intermittent over the past year or so CT of the head and CT of the head and neck was performed which demonstrates "encephalomalacia of the inferior left cerebellar hemisphere within the region of the PICA distribution is new from 06/24/2018 and is suggestive of a subacute or chronic infarct." The patient's symptoms started this morning when she woke up and therefore last known well was last night as well as with history of intermittent symptoms there is no indication for stroke activation or TPA. Findings were reviewed with the patient and family at the bedside. She is agreeable for admission for further stroke evaluation. Case was discussed with Dr. Galvez, [facility] hospitalist, who will evaluate the patient for admission. This patient was managed with the assistance of resident, Dr. Pelayo. I discussed the case with the resident, examined the patient, and confirm the findings and plan as documented in this note. Impression & Plan Cerebellar stroke, Atrial fibrillation, Vertigo Discharge Plan Visit Data *Final* Discharge Date/Time: 05/17/19 18:05 Chief Complaint: Vertigo Stated Complaint: dizzy ED Provider: Enrrique Parra Discharge Problem: Cerebellar stroke, Atrial fibrillation, Vertigo Patient Disposition: Admitted As Inpatient Discharge Instructions Interventions: ED Discharge Assessment Last Done: 05/17/19 18:05 The scribe's documentation has been prepared under my direction and personally reviewed by me in its entirety. I confirm that the note above accurately reflects all work, treatment, procedures, and medical decision making performed by me.
[2019-05-17 20:08] LABS: Lyme Ab IgG w/WB Rflx Negative (Negative); Lyme Ab IgM w/WB Rflx Negative (Negative)
[2019-05-17] MEDS: METOPROLOL SUCC 50MG EXT REL TAB PO SCH (20:47)
[2019-05-17] MEDS: APIXABAN 5 MG TABLET PO SCH (20:47)
[2019-05-17] MEDS: BRINZOLAMIDE (AZOPT) OPS 10 ML BTL OPR SCH ×2 (20:48→20:49)
--- NOTE | 2019-05-17 20:49 | Magnetic Resonance Report ---
MR brain wo con HISTORY: 88 years-old Female stroke like sx acute strokelike symptoms COMPARISON: CTA head and neck of same day TECHNIQUE: Multiplanar multisequence MRI of the brain was obtained without the use of IV contrast. FINDINGS: Large [id number] scouts localizer images demonstrate no gross extracranial abnormality. There is no restricted diffusion to suggest acute or subacute infarction. Midline structures including the corpu s callosum, brainstem, optic chiasm, pituitary and pineal glands appear unremarkable on the sagittal T1 series. Study is motion degraded. Degenerative changes noted about the imaged cervical spine. Age- related involutional changes. Moderate patchy T2/FLAIR hyperintensities about the white matter sugges t chronic microvascular ischemic disease. No acute intracranial hemorrhage, midline shift, abnormal e xtra-axial collection, hydrocephalus or intracranial mass identified. Encephalomalacia and gliosis ab out the inferior left cerebellar hemisphere within the PICA distribution is compatible with area of r emote infarct. Major flow voids at the level of the skull base appear patent. Trace left mastoid effu rajwinder. Mild mucosal thickening of the ethmoid air cells. Prior bilateral cataract repair. Skull and so ft tissues are unremarkable. IMPRESSION: 1. No acute intracranial abnormality, specifically there is no evidence of acute or subacute infarcti on. 2. Encephalomalacia and gliosis of the inferior left cerebellar hemisphere within the PICA distributi on is compatible with remote infarct. 3. Age-related involutional changes with moderate chronic microvascular ischemic disease. The above report was generated using voice recognition software. It may contain grammatical, syntax o r spelling errors. Electronically signed by: Radu Turpin M.D. 05/17/2019 8:48 PM
[2019-05-17] MEDS ORDERED: INFLUENZA VIRUS QUAD VACCINE 0.5 ML SYR IM ONE (21:15)
[2019-05-17] MEDS ORDERED: INFLUENZA ADMINISTRATION CHARGE ONE (21:15)
[2019-05-18] MEDS: LEVOTHYROXINE SODIUM 75 MCG TABLET PO SCH (06:03)
[2019-05-18 06:14] LABS: Estimated Average Glucose 108 mg/dl; Hemoglobin A1C 5.4 % (4.5-5.6)
[2019-05-18 07:02] LABS: Chol HDL Ratio 2; Cholesterol 113 mg/dl (0-200); HDL Cholesterol 47 mg/dl; LDL Cholesterol Calculated 53 mg/dl; Triglycerides 67 mg/dl (0-150); VLDL Cholesterol 13 mg/dl
[2019-05-18] MEDS: CHOLECALCIFEROL 1,000 UNITS TAB PO SCH (08:35)
[2019-05-18] MEDS: CEROVITE ADV FORMULA TAB PO SCH ×2 (08:35→16:46)
[2019-05-18] MEDS: APIXABAN 5 MG TABLET PO SCH ×2 (08:35→16:45)
[2019-05-18] MEDS: METOPROLOL SUCC 50MG EXT REL TAB PO SCH ×2 (08:36→22:07)
[2019-05-18] MEDS: BRINZOLAMIDE (AZOPT) OPS 10 ML BTL OPR SCH ×3 (08:36→22:08)
[2019-05-18 08:37] LABS: Hematocrit (blood only) 44.6 % (37-47); Hemoglobin 14.4 g/dL (12.0-16.0); Mean Corpuscular Hemoglobin 29.8 pg (25-34); Mean Corpuscular Hgb Conc 32.3 g/dL (32-36); Mean Corpuscular Volume 92.3 fL (80-100); Mean Platelet Volume 10.5 fL (7.4-10.4); Platelet Count 165 K/uL (130-400); RDW Coefficient of Variation 16.5 % (11.5-14.5); Red Blood Count 4.83 M/uL (4.2-5.4); White Blood Count 7.79 K/uL (4.8-10.8)
[2019-05-18] MEDS ORDERED: ATORVASTATIN 20 MG TAB PO SCH ×2 (09:00→21:00)
[2019-05-18] MEDS ORDERED: FUROSEMIDE 10 MG in SYRINGE 0 ML IV ONE (09:00)
[2019-05-18 09:03] LABS: Albumin Level 3.1 gm/dl (3.4-5.0); BUN Creatinine Ratio 18.1 (10-20); Calcium 9.2 mg/dl (8.5-10.1); Creatinine Clr Calc Pharmacy 45.7 ml/min; Est GFR (African American) 70.9; Est GFR (Non-African American) 61.2; Magnesium 1.8 mg/dl (1.8-2.4); Potassium 3.7 mmol/L (3.5-5.1)
[2019-05-18 09:09] LABS: Bilirubin,Total 2.2 mg/dl (0.2-1); Globulin 3.1 gm/dl (2.5-4.0); Total Protein 6.2 gm/dl (6.4-8.2)
[2019-05-18] MEDS ORDERED: FUROSEMIDE 20 MG in SYRINGE 0 ML IV ONE (10:33)
[2019-05-18] MEDS ORDERED: FUROSEMIDE 20 MG TAB PO ONE (10:45)
[2019-05-18] MEDS: MULTIVITAMIN TAB PO SCH (10:55)
--- NOTE | 2019-05-18 11:04 | Neurology Consultation ---
Date of Consultation May 18, 2019 Assessment & Plan (1) Vertigo: This patient's presentation seems most consistent with benign positional paroxysmal vertigo. She has been experiencing vertigo inducible by lying back and turning her head to the side, with associated nausea, and improvement in symptoms with sitting up. She did not experience any associated neurological symptoms such as diplopia, dysarthria, or focal weakness that would otherwise suggest an acute stroke. Her symptoms are resolved. The observed chronic left inferior cerebellar infarct would not be related to her current presentation and is an incidental finding. If she were to experience recurrence of vertigo I would recommend a trial of meclizine and would also consider referring this patient to PT for Monica maneuvers. (2) Cerebellar stroke: Incidentally discovered chronic left inferior cerebellar infarct within a PICA distribution, occurring sometime within the past year. No known history of clinical stroke syndrome in this patient. No evidence of vertebrobasilar disease on CT angiography. Stroke risk factors for this patient include atrial fibrillation (for which she is anticoagulated), hyperlipidemia, and hypertension. Her lipid panel appears normal and she should continue with atorvastatin. Her blood pressure is appropriate, continue medical management. Patient should continue with Eliquis in light of her history of atrial fibrillation. To some extent, her chronic left cerebellar infarct could be contributing to her chronic gait dysfunction/ataxia. She may benefit from some physical therapy. No further immediate recommendations for this issue. History of Present Illness Reason for Consultation: stroke like symptoms, abnormal CTH Requesting Physician: Jessie Galvez DO Attending Physician: Gavin Hurtado DO History of Present Illness The patient is an 88-year-old female with a chief complaint of vertigo that began acutely yesterday morning. The episodes were triggered by lying back and turning her head to either side. She describes the vertigo as a spinning sensation. She also complains of associated nausea, no emesis. Patient denies any associated diplopia, dysarthria, focal weakness, or drop attacks. She does complain of some ear fullness, more so on the right. No hearing loss or tinnitus. She does admit to having similar episodes in the past. Her symptoms are currently resolved. Past medical history notable for atrial fibrillation for which she has been taking Eliquis. Patient denies a history of stroke or TIA. Additional details as below. Allergies Allergy/AdvReac Type Severity Reaction Status Date / Time oxycodone AdvReac Mild AMNESIA Verified 05/17/19 14:03 risedronate sodium AdvReac Mild N/V Verified 05/17/19 14:03 alendronate sodium AdvReac Unknown N/V Verified 05/17/19 14:03 methimazole AdvReac Unknown N/V Verified 05/17/19 14:03 Ibandronic Acid AdvReac Unknown leg Uncoded 05/17/19 14:03 pain;and diarrhea Home Medications Home Medications Medication Instructions Recorded Confirmed Type Azopt 1 drp OPR TID 06/11/18 05/17/19 History Combigan 1 drp OPB BID 06/11/18 05/17/19 History Lumigan 1 drp OPR HS 06/11/18 05/17/19 History PreserVision Lutein 1 cap PO BIDM 06/11/18 05/17/19 History atorvastatin [Lipitor] 20 mg PO Q2D 06/11/18 05/17/19 History cholecalciferol (vitamin D3) 2,000 unit PO QAM 06/11/18 05/17/19 History [Vitamin D3] levothyroxine 75 mcg PO QAM 06/11/18 05/17/19 History multivitamin 1 tab PO DAILY@1100 06/11/18 05/17/19 History acetaminophen [Tylenol Extra 500 - 1,000 mg PO UD PRN 06/24/18 05/17/19 History Strength] triamterene 37.5 1 tab PO DAILY PRN #30 tab 03/10/19 05/17/19 History mg-hydrochlorothiazide 25 mg tablet apixaban 5 mg PO BIDM 05/17/19 05/17/19 History metoprolol succinate 50 mg PO HS 05/17/19 05/17/19 History metoprolol succinate 100 mg PO QAM 05/17/19 05/17/19 History Patient History Medical History Urinary retention Ambulatory dysfunction Transaminitis Exertional dyspnea Chest tightness Atrial fibrillation with RVR (Acute) UTI (urinary tract infection) (Acute) Hyperlipidemia Hypertension Atrial fibrillation dx 8 years ago, on oral medications. follows w/ dr. 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 Hypothyroidism Osteoarthritis Osteoporosis Heart murmur MR and Arthritis of knee, left (Acute 11/16/13) Right knee DJD Surgical History Hx of cataract surgery History of total knee replacement bl History of thyroidectomy History of prolapse of bladder surgically repaired History of total abdominal hysterectomy and bilateral salpingo-oophorectomy History of colonoscopy w/ polypectomy History of hand surgery Family History Other No significant family history Social History Preferred Language: Georgian Communication Ability: Effective Health Science Instructor Required: No Beliefs That Will Affect Care: None Current Living Situation: Alone Feels Safe at Home: Yes Safety Concerns: Feels Safe At This Time Smoking Status: Former smoker Do You Dip or Chew Tobacco: No ; Number of Years Since Quit: 50 ; Second Hand Exposure: No ; Hx Alcohol Use: No Hx Substance Use: No Review of Systems Constitutional: no fever, no chills and no fatigue Eyes: no blind spots and no diplopia Ear, Nose, Mouth, Throat: as per Subjective / HPI; no tinnitus and no hearing loss Respiratory: no cough and no dyspnea Cardiovascular: no chest pain and no palpitations Gastrointestinal: no nausea and no vomiting Genitourinary: no dysuria and no urinary incontinence Musculoskeletal: no neck pain and no myalgia Integumentary: no rash and no lesions Neurologic: as per Subjective / HPI, + unsteadiness and + dizziness; no localized weakness, no loss of sensation, no tremor(s), no seizure-like activity, no headache(s), no abnormal speech, no confusion and no memory loss Psychiatric: no depression and no anxiety Hematologic / Lymphatic: no easy bleeding and no easy bruising Physical Exam Physical Exam: The patient is a well-developed, well-nourished elderly female. She is alert and fully oriented. Recent and remote memory intact. Attention and concentration normal. Patient exhibits a normal spontaneous speech pattern. Speech is non-dysarthric. She is able to name objects and repeat phrases. Patient exhibits an age-appropriate fund of knowledge and normal comprehension of vocabulary. Visual iqbal full to confrontation. Visual acuity normal. Pupils equal round reactive to light and accommodation. Eye movements normal. There is no ptosis, nystagmus, or ophthalmoplegia. Facial sensation intact. There is no facial droop or weakness. Hearing intact. Palate elevates to midline. Shoulder shrug intact. Tongue protrudes to midline. Sensation intact to all modalities in all 4 limbs. Deep tendon reflexes intact and symmetrical for the arms and legs bilaterally. Plantar responses downgoing bilaterally. There is no dysdiadochokinesia or dysmetria [id number] or [id number]-hz-tlew bilaterally. Ophthalmoscopic examination reveals normal-appearing optic disks and posterior segments. No papilledema or hemorrhages. Carotid pulses normal bilaterally, no bruits to auscultation. Gait and station slightly off balance or ataxic appearing. Patient ambulates with cane, without assistance. Patient exhibits normal muscle strength and tone for all 4 limbs. No atrophy. No abnormal movements observed. Results & Data Vital Signs (Past 12 Hours) Vital Signs Temp Pulse Pulse Resp BP Pulse Ox 05/18/19 07:37 97 H 05/18/19 07:25 36.6 C 95 H 18 139/78 92 05/18/19 04:04 36.7 C 106 H 18 122/78 93 05/18/19 00:03 117 H 05/17/19 23:21 36.5 C 100 H 18 134/87 94 Laboratory Results WBC 7.79, hemoglobin 14.4, hematocrit 44.6, platelet count 165, sodium 141, potassium 3.7, BUN 16, creatinine 0.86, glucose 150, hemoglobin A1c 5.4, calcium 9.2, magnesium 1.8, triglycerides 67, cholesterol 113, LDL 53, VLDL 13, HDL 47 Lyme antibody screening negative. Diagnostic Findings A CT of the head reveals an area of encephalomalacia within the inferior left cerebellar hemisphere, suggestive of a remote infarct within the posterior inferior cerebellar artery distribution, new compared with a CT of the head completed in May 2018. I reviewed the images as well as the radiologist interpretation of this test. A CT angiogram of the head and neck are unremarkable, no evidence for aneurysm, dissection, stenosis, or occlusion. MRI of the brain negative for acute or subacute infarct. There is an area of encephalomalacia and gliosis within the inferior left cerebellar hemisphere consistent with a remote PICA distribution infarct. I reviewed the images as well as the radiologist interpretation of this test.
--- NOTE | 2019-05-18 14:08 | Hospitalist Progress Note ---
Date of Service May 18, 2019 Assessment & Plan (1) Cerebellar stroke: - Brain MRI showed chronic left inferior cerebellar infarct within PICA distribution. - CTA head/neck with chronic left cerebellar changes, no significant stenosis of neck noted. - Echo is pending completion. - Neuro consult, appreciate input. Has multiple risk factors, including A. fib, HLD and HTN. - Continue home statin q2days as prescribed - no indication for increase in dosing per lipid panel; add Aspirin 81 mg daily. - Continue Eliquis in setting of chronic A. fib. - PT/OT consult for discharge planning. (2) Vertigo: - Neuro consulted, symptoms are c/w vertigo (BPPV) and not related to chronic infarct. - Symptoms are now resolved; consider Meclizine trial for recurrent issues. - PT/OT evaluation. (3) Pleural effusion: - CXR with bilat small pleural effusions; BNP was 5,097. - Most recent TTE with preserved EF; may be related to diastolic CHF. - Will give Lasix 20 mg PO (avoid IV diuretics and hypotension) and monitor response. - Daily weights and net I/Os. - Currently stable on room air; does have chronic SOB with exertion during chest tightness episodes. (4) Chest tightness: - Has been chronic issue, occurs multiple times per month. - Consider unstable angina based on reported symptoms; follows with Dr. Greenberg, has appt in May 2019. - Echo pending to evaluate for wall motion abnormalities. - EKG negative; Trop was 0.020 then trended down. - Discussed possibility of dobutamine stress echo followed by cardiac cath if indicated -- pt. is not interested in aggressive cardiac work up at this time. Will plan on continued medical management. - Continue home statin & beta carey; add Aspirin 81 mg daily. Will also start Lisinopril 2.5 mg daily in setting of CAD. May also require addition of Imdur as outpatient, can discuss with Dr. Greenberg at outpt appt. (5) Leg edema, right: - C/o bilat LE edema, R>L; will order doppler of bilat LE to rule out DVT. - May also be related to CHF but would likely be symmetrical. - Diuresis as noted above. (6) Dyslipidemia: - Continue home statin - no indication for increased dosing. - Lipid panel showed LDL 53, HDL 47. (7) Permanent atrial fibrillation: - Continue home beta carey and Eliquis as prescribed. - Currently in A. fib, rate controlled on monitor. (8) Urinary retention: - No current issues noted. (9) Hypothyroidism: - Continue home Synthroid. - TSH was 1.02. (10) Depression: - Not currently on meds. (11) Hypertension: - Continue home Metoprolol; Triamterene-HCTZ also listed on med list -- she did not start taking this med as outpatient. - Add Lisinopril 2.5 mg daily in setting of CAD, ?unstable angina. - Monitor closely for hypotension. (12) Total bilirubin, elevated: - T. bili increased to 2.2 today -- will trend LFTs qAM. - Consider RUQ imaging if necessary. - Continue statin at this time, consider holding. (13) DVT prophylaxis: - Eliquis. Dispo: Med/surg with tele; discharge pending PT/OT evaluation and cardiac work up, likely on 05/18/19. Supervising Physician Co-Signing Physician Notes Chart reviewed, case discussed with Tova Davis PAC. Agree with decision making and plan. Care as above. Subjective Pt. complains of chest pain/tightness both with exertion and at rest. She states chest tightness has become a chronic issue -- occurs multiple times per month but not on a daily basis. Has associated SOB during episodes. Follows with Dr. Greenberg, has appt scheduled in May 2019. Dizziness, nausea now resolved. Review of Systems Review of Systems: All systems reviewed & are unremarkable except as noted in HPI & below Constitutional: no fever, no chills, no fatigue, no weakness and no anorexia Respiratory: no cough, no dyspnea, no dyspnea on exertion and no wheezing Cardiovascular: + chest pain, + chest pain at rest and + chest pain with activity; no radiating jaw, neck or arm pain, no dyspnea, no dyspnea at rest, no palpitations, no lightheadedness and no edema Gastrointestinal: no abdominal pain, no nausea, no vomiting and no constipation Genitourinary: no dysuria and no difficulty urinating Musculoskeletal: no back pain and no joint pain Integumentary: no non-healing lesions Physical Exam Physical Exam: General: Resting comfortably HEENT: NC/AT; PERRLA with EOMI; [place] conjunctiva, MMM. No erythema of posterior pharynx Neck: Supple and nontender Cardiac: RRR Lungs: CTA bilaterally Abdomen: Bowel normoactive X 4; Nontender to palpation Extremities: Warm. No edema present Neuro: No focal weakness Skin: No rash Results & Data Vital Signs (Past 12 Hours) Vital Signs Temp Pulse Pulse Resp BP BP Pulse Ox 05/18/19 11:10 36.3 C L 105 H 18 145/87 H 94 05/18/19 07:37 97 H 05/18/19 07:25 36.6 C 95 H 18 139/78 92 05/18/19 04:04 36.7 C 106 H 18 122/78 93 Laboratory Results 05/18/19 05/18/19 05/18/19 Range/Units 14:06 14:06 08:22 WBC (4.8-10.8) K/uL RBC (4.2-5.4) M/uL Hgb (12.0-16.0) g/dL Hct (37-47) % MCV (80-100) fL MCH (25-34) pg MCHC (32-36) g/dL RDW Std Deviation (36.4-46.3) fL RDW Coeff of Piotr (11.5-14.5) % Plt Count (130-400) K/uL MPV (7.4-10.4) fL PT Pending INR Pending Sodium (136-145) mmol/L Potassium (3.5-5.1) mmol/L Chloride (98-107) mmol/L Carbon Dioxide (21-32) mmol/L Anion Gap (3-11) BUN (7-18) mg/dl Creatinine (0.6-1.2) mg/dl Est Cr Clr Drug Dosing ml/min Est GFR ( Amer) Est GFR (Non-Af Amer) BUN/Creatinine Ratio (10-20) Glucose (70-99) mg/dl Estimat Average Glucose mg/dl Hemoglobin A1c (4.5-5.6) % Calcium (8.5-10.1) mg/dl Magnesium (1.8-2.4) mg/dl Total Bilirubin (0.2-1) mg/dl AST (15-37) U/L ALT (12-78) U/L Alkaline Phosphatase (45-117) U/L Troponin I Pending 0.020 (0-0.045) ng/ml NT-Pro-B Natriuret Pep (0-1800) pg/ml Total Protein (6.4-8.2) gm/dl Albumin (3.4-5.0) gm/dl Globulin (2.5-4.0) gm/dl Albumin/Globulin Ratio (0.9-2) Triglycerides (0-150) mg/dl Cholesterol (0-200) mg/dl LDL Cholesterol, Calc mg/dl VLDL Cholesterol, Calc mg/dl HDL Cholesterol mg/dl Cholesterol/HDL Ratio Lyme Disease IgG Ab (Negative) Lyme Disease IgM Ab (Negative) 05/18/19 05/18/19 05/18/19 Range/Units 08:22 08:22 06:00 WBC 7.79 (4.8-10.8) K/uL RBC 4.83 (4.2-5.4) M/uL Hgb 14.4 (12.0-16.0) g/dL Hct 44.6 (37-47) % MCV 92.3 (80-100) fL MCH 29.8 (25-34) pg MCHC 32.3 (32-36) g/dL RDW Std Deviation 56.0 H (36.4-46.3) fL RDW Coeff of Piotr 16.5 H (11.5-14.5) % Plt Count 165 (130-400) K/uL MPV 10.5 H (7.4-10.4) fL PT INR Sodium 141 (136-145) mmol/L Potassium 3.7 (3.5-5.1) mmol/L Chloride 106 (98-107) mmol/L Carbon Dioxide 26 (21-32) mmol/L Anion Gap 9.0 (3-11) BUN 16 (7-18) mg/dl Creatinine 0.86 (0.6-1.2) mg/dl Est Cr Clr Drug Dosing 45.7 ml/min Est GFR ( Amer) 70.9 Est GFR (Non-Af Amer) 61.2 BUN/Creatinine Ratio 18.1 (10-20) Glucose 150 H (70-99) mg/dl Estimat Average Glucose mg/dl Hemoglobin A1c (4.5-5.6) % Calcium 9.2 (8.5-10.1) mg/dl Magnesium 1.8 (1.8-2.4) mg/dl Total Bilirubin 2.2 H (0.2-1) mg/dl AST 41 H (15-37) U/L ALT 53 (12-78) U/L Alkaline Phosphatase 105 (45-117) U/L Troponin I (0-0.045) ng/ml NT-Pro-B Natriuret Pep 5097 H (0-1800) pg/ml Total Protein 6.2 L (6.4-8.2) gm/dl Albumin 3.1 L (3.4-5.0) gm/dl Globulin 3.1 (2.5-4.0) gm/dl Albumin/Globulin Ratio 1.0 (0.9-2) Triglycerides 67 (0-150) mg/dl Cholesterol 113 (0-200) mg/dl LDL Cholesterol, Calc 53 mg/dl VLDL Cholesterol, Calc 13 mg/dl HDL Cholesterol 47 mg/dl Cholesterol/HDL Ratio 2 Lyme Disease IgG Ab (Negative) Lyme Disease IgM Ab (Negative) 05/17/19 05/17/19 Range/Units 18:46 13:20 WBC (4.8-10.8) K/uL RBC (4.2-5.4) M/uL Hgb (12.0-16.0) g/dL Hct (37-47) % MCV (80-100) fL MCH (25-34) pg MCHC (32-36) g/dL RDW Std Deviation (36.4-46.3) fL RDW Coeff of Piotr (11.5-14.5) % Plt Count (130-400) K/uL MPV (7.4-10.4) fL PT INR Sodium (136-145) mmol/L Potassium (3.5-5.1) mmol/L Chloride (98-107) mmol/L Carbon Dioxide (21-32) mmol/L Anion Gap (3-11) BUN (7-18) mg/dl Creatinine (0.6-1.2) mg/dl Est Cr Clr Drug Dosing ml/min Est GFR ( Amer) Est GFR (Non-Af Amer) BUN/Creatinine Ratio (10-20) Glucose (70-99) mg/dl Estimat Average Glucose 108 mg/dl Hemoglobin A1c 5.4 (4.5-5.6) % Calcium (8.5-10.1) mg/dl Magnesium (1.8-2.4) mg/dl Total Bilirubin (0.2-1) mg/dl AST (15-37) U/L ALT (12-78) U/L Alkaline Phosphatase (45-117) U/L Troponin I (0-0.045) ng/ml NT-Pro-B Natriuret Pep (0-1800) pg/ml Total Protein (6.4-8.2) gm/dl Albumin (3.4-5.0) gm/dl Globulin (2.5-4.0) gm/dl Albumin/Globulin Ratio (0.9-2) Triglycerides (0-150) mg/dl Cholesterol (0-200) mg/dl LDL Cholesterol, Calc mg/dl VLDL Cholesterol, Calc mg/dl HDL Cholesterol mg/dl Cholesterol/HDL Ratio Lyme Disease IgG Ab Negative (Negative) Lyme Disease IgM Ab Negative (Negative) PG Care Time/CCT Total # of Minutes Spent Total Time Spent with Patient: Total time spent is greater than 50% in coordination of care (as documented) at patient's floor/unit and/or counseling patient:
[2019-05-18 14:49] LABS: INR 1.2 (0.9-1.1); Prothrombin Time 11.8 Seconds (9.0-12.0)
[2019-05-18] MEDS: ASPIRIN 81 MG ECTAB PO SCH (16:46)
--- NOTE | 2019-05-18 21:57 | Ultrasound Report ---
BILATERAL LOWER EXTREMITY VENOUS DOPPLER HISTORY: Bilateral leg swelling. Rule out DVT COMPARISON STUDY: None. FINDINGS: There is normal compressibility, flow, and augmentation within the bilateral lower extremit y deep venous systems. IMPRESSION: No DVT within the right or left lower extremity. Electronically signed by: Branden Green M.D. 05/18/2019 9:55 PM
[2019-05-19] MEDS: LEVOTHYROXINE SODIUM 75 MCG TABLET PO SCH (06:02)
[2019-05-19 06:22] LABS: Hematocrit (blood only) 41.4 % (37-47); Hemoglobin 13.5 g/dL (12.0-16.0); Mean Corpuscular Hemoglobin 30.3 pg (25-34); Mean Corpuscular Hgb Conc 32.6 g/dL (32-36); Platelet Count 155 K/uL (130-400); RDW Coefficient of Variation 16.2 % (11.5-14.5); RDW Standard Deviation 54.4 fL (36.4-46.3); Red Blood Count 4.45 M/uL (4.2-5.4); White Blood Count 6.58 K/uL (4.8-10.8)
[2019-05-19 06:52] LABS: Albumin Level 2.8 gm/dl (3.4-5.0); BUN Creatinine Ratio 20.8 (10-20); Calcium 8.7 mg/dl (8.5-10.1); Creatinine Clr Calc Pharmacy 45.1 ml/min; Est GFR (African American) 69.9; Est GFR (Non-African American) 60.3; Potassium 3.6 mmol/L (3.5-5.1)
[2019-05-19 06:55] LABS: Albumin Globulin Ratio 1.1 (0.9-2); Bilirubin,Total 1.7 mg/dl (0.2-1); Globulin 2.6 gm/dl (2.5-4.0); Total Protein 5.4 gm/dl (6.4-8.2)
[2019-05-19] MEDS: ASPIRIN 81 MG ECTAB PO SCH (07:39)
[2019-05-19] MEDS: METOPROLOL SUCC 50MG EXT REL TAB PO SCH (07:40)
[2019-05-19] MEDS: CEROVITE ADV FORMULA TAB PO SCH (07:40)
[2019-05-19] MEDS: APIXABAN 5 MG TABLET PO SCH (07:40)
[2019-05-19] MEDS: BRINZOLAMIDE (AZOPT) OPS 10 ML BTL OPR SCH ×2 (07:41→13:43)
[2019-05-19] MEDS: CHOLECALCIFEROL 1,000 UNITS TAB PO SCH (07:41)
[2019-05-19] MEDS ORDERED: FUROSEMIDE 20 MG in SYRINGE 0 ML IV ONE (09:00)
[2019-05-19] MEDS: MULTIVITAMIN TAB PO SCH (11:04)
--- NOTE | 2019-05-19 13:28 | Discharge Summary ---
Date of Service May 19, 2019 Admission HPI Per Admitting Provider 88 y/o F c/o dizziness. Pt states she had two episodes of room spinning dizziness this AM. The first was after she was turning over in bed and the second was while she was just lying. Last episode was around 9a. She states she was nauseated with this, but no emesis. She states it resolved and she was up doing things around her home after that. She did have some mild SOB and chest heaviness with this activity, but she was able to complete her activities. This has been happening intermittently for over a month. She states that yesterday was a normal day for her. She has been fatigued and feels weak since her admission in September, but nothing new. Pt denies issues with inability to use UE/LE recently, no facial droop or confusion. She states she has baseline balance issues related to her knees, but no other balance problems recently. At present, pt feels fatigued, but no further episodes of room spinning. Pt denies fever, abd pain, c/d, LE pain. She does get LE swelling at times and is currently at her baseline for this. Pt was admitted 09/2018 with dizziness. She was found to have a PNA and UTI and tx. She was d/c'd to [facility] for rehab at that time. Admission Exam Per Admitting Provider Constitutional: WD/WN, vitals as above Eyes: normal visual iqbal by confrontation and + anicteric sclerae Neck: normal visual inspection and trachea midline Respiratory: normal respiratory effort, lungs clear to auscultation Cardiovascular: Rate/Rhythm: regular rate and regular rhythm Gastrointestinal (Abdomen): Inspection/Auscultation: abdomen not distended Percussion/Palpation: abdomen soft; abdomen nontender Musculoskeletal: Head/Neck/Chest: normocephalic and head atraumatic Trace nonpitting b/l LE edema, peripheral pulses intact Skin: no rashes, warm and dry Neurologic: CN's II-XI intact bilaterally and awake; not confused 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 No erythema of posterior pharynx Neck: Supple and nontender Cardiac: Irregular, rate controlled. Lungs: CTA bilaterally Abdomen: Bowel normoactive X 4; Nontender to palpation Extremities: Warm. +1 bilat LE edema. Neuro: No focal weakness Skin: No rash Discharge Data Allergies Allergy/AdvReac Type Severity Reaction Status Date / Time oxycodone AdvReac Mild AMNESIA Verified 05/17/19 14:03 risedronate sodium AdvReac Mild N/V Verified 05/17/19 14:03 alendronate sodium AdvReac Unknown N/V Verified 05/17/19 14:03 methimazole AdvReac Unknown N/V Verified 05/17/19 14:03 Ibandronic Acid AdvReac Unknown leg Uncoded 05/17/19 14:03 pain;and diarrhea Consultations 05/17/19 16:55 ED Decision to Admit Stat 05/17/19 18:36 Consult Case Management - Discharge Planning Routine Consult Case Management - Discharge Planning Routine Consult Neurology Routine Ordered Studies 05/17/19 14:32 CT angio head w con Stat CT angio neck with con Stat CT head/brain wo con Stat CXR 05/17/19 18:36 MR brain wo con Routine 05/18/19 11:18 US venous doppler LE BI Routine Hospital Course (1) Cerebellar stroke: Brain MRI showed chronic left inferior cerebellar infarct within PICA distribution. CTA head/neck with chronic left cerebellar changes, no significant stenosis of neck noted. Echo was unchanged compared to Sep 2018. Neuro consulted, appreciate input. Has multiple risk factors, including A. fib, HLD and HTN. Continued home statin q2days as prescribed - no indication for increase in dosing per lipid panel; added Aspirin 81 mg daily. Continued Eliquis in setting of chronic A. fib. PT/OT -- will give script for outpatient PT. (2) Vertigo: Neuro consulted, symptoms are c/w vertigo (BPPV) and not related to chronic infarct. Symptoms are now resolved; consider Meclizine trial in future for recurrent issues. (3) Pleural effusion: CXR with bilat small pleural effusions; BNP was 5,097. Most recent TTE with preserved EF; may be related to diastolic CHF. Received Lasix on 05/18 and 05/19 for LE edema, SOB. Consider prescribing daily Lasix as outpatient as pt. reports chronic LE edema. Stable on room air; does have chronic SOB with exertion during chest tightness episodes. (4) Chest tightness: Has been chronic issue, occurs multiple times per month. Consider unstable angina based on reported symptoms; follows with Dr. Greenberg, has appt in May 2019. Echo negative for new wall motion abnormalities. EKG negative; Trop was 0.020 then trended down. Discussed possibility of dobutamine stress echo followed by cardiac cath if indicated -- pt. is not interested in aggressive cardiac work up at this time. Will plan on continued medical management. Continued home statin & beta carey; added Aspirin 81 mg daily. Started Lisinopril 2.5 mg daily in setting of CAD. May also require addition of Imdur as outpatient, can discuss with Dr. Greenberg at outpt appt. Script was provided for Nitro 0.4 mg tablets prn chest pain. (5) Leg edema, right: C/o bilat LE edema, R>L; doppler of bilat LE was negative for DVT. May also be related to CHF. Diuresis as noted above; consider addition of daily diuretic. (6) Dyslipidemia: Continued home statin - no indication for increased dosing. Lipid panel showed LDL 53, HDL 47. (7) Permanent atrial fibrillation: Continued home beta carey and Eliquis as prescribed. Currently in A. fib, rate controlled on monitor. (8) Urinary retention: No current issues noted. (9) Hypothyroidism: Continued home Synthroid. TSH was 1.02. (10) Depression: Not currently on meds. (11) Hypertension: Continued home Metoprolol; Triamterene-HCTZ also listed on med list -- she did not start taking this med as outpatient. Added Lisinopril 2.5 mg daily in setting of CAD, ?unstable angina. (12) Total bilirubin, elevated: T. bili peaked at 2.2, now trending down. (13) DVT prophylaxis: Eliquis. Stable for discharge on 05/19/19. Total Time Total Time Spent Total Time Spent (In Minutes): >30 minutes Total Time Includes: Examination of the Patient, Discharge Planning, Medication Reconciliation, Communication With Other Providers and Other Discharge Plan Discharge Items Patient Disposition: Home - Self-Care Reason For Visit: STROKE LIKE SYMPTOMS Discharge Diagnosis: Cerebellar Stroke, Vertigo Condition on Discharge: Good Activity: As commented below Exercise/Sports: Gradually increase as tolerated Non-emergency contact: Primary Care Provider, Live In Companion and Neurologist Call non-emergency contact if: you have any medication questions, your symptoms worsen, your pain is not controlled, your pain is worsening, your pain is unusual for you, your pain is concerning for you and you have a fever Follow-up/Referrals: Bernard Greenberg MD [Physician] - (Please follow up with Dr. Greenberg as scheduled in May. ) Jack Siegel MD [Physician] - (Please follow up with neurology in 2-[address] Siegel's office will call to arrange appt.) Mustapha Abel MD [Primary Care Provider] - 05/25/19 9:10 am (A follow up appt. has been made for you with Dr. Pierre (with Dr. Abel) on May.25 at 9:10am.) Diet: Regular and Heart Healthy Addtl Attending Provider Instructions: 1. Cerebellar Stroke * Brain MRI showed a chronic left inferior cerebellar infarct within PICA distribution. * Please continue home statin as prescribed. * Please start Aspirin 81 mg daily (baby aspirin, can be purchased over the counter) * Continue Eliquis as prescribed in the setting of A. fib. * You will need to follow up with neurology as an outpatient. 2. Chest Pain/Tightness and Shortness of breath * Please follow up with Dr. Greenberg as scheduled to discuss further cardiac work up. * Aspirin 81 mg daily has been started during this admission. * Lisinopril 2.5 mg daily has also been added- prescription was sent to your pharmacy. * Continue Metoprolol and statin as prescribed. * Prescription was also provided for Nitroglycerin tablets -- please take 1 tablet every 5 minutes as needed for acute chest pain, max of 3 tablets. * Please monitor lower extremity swelling; call your primary care provider if you develop increased swelling -- you may require a daily water pill to help decrease symptoms in the future. 3. Please schedule follow up with primary care provider in 1-2 weeks to discuss this admission. Pending Studies at Discharge: No Stand-Alone Forms: Medications to Prevent Stroke, [facility] [employer] Medications and DC Order Prescriptions: New aspirin [Ecotrin Low Strength] 81 mg Tablet,Delayed Release (Dr/Ec) 81 mg PO QAM 1 Days Qty: 1 RF: 0 lisinopril 2.5 mg Tablet 2.5 mg PO QAM 30 Days Qty: 30 RF: 2 nitroglycerin 0.4 mg tablet, sublingual 0.4 mg sublingual Q5M PRN (Reason: chest pain) Qty: 10 RF: 0 Continued acetaminophen [Tylenol Extra Strength] 500 mg Tablet 500 - 1,000 mg PO UD PRN (Reason: Pain) RF: 0 metoprolol succinate 100 mg tablet extended release 24 hr 50 mg PO HS RF: 0 metoprolol succinate 100 mg tablet extended release 24 hr 100 mg PO QAM RF: 0 apixaban 5 mg tablet 5 mg PO BIDM RF: 0 multivitamin Tablet 1 tab PO DAILY@1100 RF: 0 atorvastatin [Lipitor] 20 mg Tablet 20 mg PO Q2D RF: 0 Azopt 1 % Drops,Suspension 1 drp OPR TID RF: 0 PreserVision Lutein 226 mg-200 unit -5 mg-0.8 mg Capsule 1 cap PO BIDM RF: 0 Combigan 0.2-0.5 % Drops 1 drp OPB BID RF: 0 cholecalciferol (vitamin D3) [Vitamin D3] 2,000 unit Tablet 2,000 unit PO QAM RF: 0 levothyroxine 75 mcg Capsule 75 mcg PO QAM RF: 0 Lumigan 0.01 % Drops 1 drp OPR HS RF: 0 Discontinued triamterene-hydrochlorothiazid 37.5-25 mg tablet 1 tab PO DAILY PRN (Reason: Swelling) Qty: 30 RF: 0 Discharge Orders: Discharge Order (Routine); Ordered 05/19/19 Ordered By: Tova Davis Admission Data Admit Date/Time: 05/18/19 11:19 Attending Provider: Gavin Hurtado Admit Provider: Jessie Galvez Primary Care Provider: Mustapha Abel Other Providers: Jessie Galvez ; Jack Siegel. Other Interventions: Discharge Summary Assessment (RN) Last Done: 05/19/19 14:05 DC Date/Time DO NOT enter until pt leaves facility: 05/19/19 15:46 Supervising Physician Co-Signing Physician Notes I personally examined the patient and verified all weaver points of history and exam, discussed case, and agree with decision making with Viraj Davis PAC Feeling better and feeling up to going home. Extensive discussion about the addition of the aspirin, and what to watch for as far as bleed risk, and the rationale behind initiating it in addition to her Eliquis. Also discussed the initiation of lisinopril and the need for follow-up basic metabolic panel. All questions answered to the best my ability and to her satisfaction. Vitals noted, in general she is awake and alert pleasant no distress. HEENT nc at mm moist. Breathing unlabored no accessory muscle use good effort. Skin no rashes no pallor or icterus Vertigoseems the primary reason for her admission was actually vertigo. She seems improving and is stable for home Cerebrovascular diseaseshe had evidence of an old cerebellar stroke, and we initiated aspirin and an JORI inhibitor as secondary risk reduction, risks/benefits discussed, follow-up basic metabolic panel, follow-up PCP Presumed angina with exertioncertainly with her cerebrovascular disease she has plenty of risk for cardiovascular diseasehowever in discussions she noted she would not want a heart cath, and therefore stress testing would be of no benefit to her, more than simply presumptive escalation of med management. Initiated aspirin and lisinopril as above. Follow-up with cardiology, follow-up basic metabolic panel in the next week or so. Stable for discharge home
[2019-05-19] MEDS ORDERED: STROKE PATIENT DISCHARGE STA (14:00)
--- NOTE | 2019-05-19 14:51 | Pharmacy Report ---
Pharmacist Stroke Counseling - Date of Service May 19, 2019 - Scope: Pharmacy has been consulted to provide medication discharge counseling for this patient admitted with stroke like symptoms and history of stroke, as per the Pharmacist Discharge Counseling for Stroke Patients Protocol. - Medications on Discharge: Home Medications Medication Instructions Recorded Confirmed Azopt 1 drp OPR TID 06/11/18 05/17/19 Combigan 1 drp OPB BID 06/11/18 05/17/19 Lumigan 1 drp OPR HS 06/11/18 05/17/19 PreserVision Lutein 1 cap PO BIDM 06/11/18 05/17/19 atorvastatin [Lipitor] 20 mg PO Q2D 06/11/18 05/17/19 cholecalciferol (vitamin D3) 2,000 unit PO QAM 06/11/18 05/17/19 [Vitamin D3] levothyroxine 75 mcg PO QAM 06/11/18 05/17/19 multivitamin 1 tab PO DAILY@1100 06/11/18 05/17/19 acetaminophen [Tylenol Extra 500 - 1,000 mg PO UD PRN 06/24/18 05/17/19 Strength] apixaban 5 mg PO BIDM 05/17/19 05/17/19 metoprolol succinate 50 mg PO HS 05/17/19 05/17/19 metoprolol succinate 100 mg PO QAM 05/17/19 05/17/19 New Rx's Medication Instructions Recorded aspirin [Ecotrin Low Strength] 81 mg PO QAM 1 Days #1 tab 05/19/19 lisinopril 2.5 mg PO QAM 30 Days #30 tab 05/19/19 nitroglycerin 0.4 mg SUBLINGUAL Q5M PRN #10 tab 05/19/19 - Action: The above medications, specifically ones for stroke treatment/prophylaxis, have been reviewed in detail with the patient and/or patient digital sales representative(s) prior to discharge. This includes indication, common adverse reactions, drug interactions, and medication administration. Medication counseling has been employed using the teach-back method to ensure understanding. - Outcome: The patient has demonstrated understanding of the medications. Please note, they are aware that the pharmacist will call them within 72hours post-discharge to confirm that the appropriate medications are being taken and answer any further medication related questions the patient might have at that time. Contact information Individual to be contacted: Patient Relationship to patient (if applicable): N/A Phone number: [phone] Best time to call: Anytime Additional comments: Patient currently has no evidence of acute stroke, however she has a history of stroke possibly within the past year. She has been on Eliquis for A.Fib and she is aware that this is a blood thinner. I re-iterated that this is important to take BID to prevent blood clots and future stroke. I went over the new meds that were started on this admission especially ASA 81 mg and Lisinopril. I explained that ASA can increase risk for bleeding/bruising and she should monitor. She said she is familiar with Lisinopril since she has taken this in the past. I mentioned that we would contact her on 05/21/19. Thank you for allowing pharmacy to be involved in the care of this patient. Please call [phone] or [phone] with any additional questions
--- NOTE | 2019-05-21 13:32 | Pharmacy Report ---
Pharmacist Post D/C Phone Note - Phone Note: Date of phone call: May 21, 2019. Individual with whom pharmacist spoke to: LORRAINE CARREON The following questions were reviewed during the phone call with responses listed below each: Can you tell me the medications that you are currently taking as well as when and how you take each medication? -See Table Below When have you missed any doses of your medications? - States she hasn't missed any doses, but has just started taking them What side effects are you having from your medications, specifically, the new medications you were started on? - No side effects but again just started taking them What questions do you have about your medications? - No questions at this time. What problems are you having obtaining your medications? - Was able to get medications When is your next appointment with your primary care doctor? - May 25. Additional comments: - States she is feeling well, no issues/questions with medications at this time. Encouraged patient to give us a call if she had any medication related qu estions or speak with her doctor at her next appointment. As per the Pharmacist Discharge Counseling for Stroke Patients Protocol, this phone call has been completed within 72 hours of discharge. Thank you for allowing us to be involved in the care of this patient. - Home Medications: Home Medications Medication Instructions Recorded Confirmed Azopt 1 drp OPR TID 06/11/18 05/17/19 Combigan 1 drp OPB BID 06/11/18 05/17/19 Lumigan 1 drp OPR HS 06/11/18 05/17/19 PreserVision Lutein 1 cap PO BIDM 06/11/18 05/17/19 atorvastatin [Lipitor] 20 mg PO Q2D 06/11/18 05/17/19 cholecalciferol (vitamin D3) 2,000 unit PO QAM 06/11/18 05/17/19 [Vitamin D3] levothyroxine 75 mcg PO QAM 06/11/18 05/17/19 multivitamin 1 tab PO DAILY@1100 06/11/18 05/17/19 acetaminophen [Tylenol Extra 500 - 1,000 mg PO UD PRN 06/24/18 05/17/19 Strength] apixaban 5 mg PO BIDM 05/17/19 05/17/19 metoprolol succinate 50 mg PO HS 05/17/19 05/17/19 metoprolol succinate 100 mg PO QAM 05/17/19 05/17/19 New Rx's Medication Instructions Recorded lisinopril 2.5 mg PO QAM 30 Days #30 tab 05/19/19 nitroglycerin 0.4 mg SUBLINGUAL Q5M PRN #10 tab 05/19/19
== END 2019-05-19 15:46 | disposition home or self-care (01) | DRG 65 ==
LOC: 2N 12:38 → ED 12:38 → SUATTDRO 17:26 → 2N 18:05